=== PATIENT | male | born 1965 | race Caucasian/White ===

== ENCOUNTER → 2018-11-05 | Outpatient (CLI) | payer BC ==
[2015-01-19 16:33] VITALS: BP 114/79
[~2018-11-05] MED LIST: MELA1TAB10 PO; MELO15TA23 PO; TAMS0.4C2 PO; VALE450C2 PO
--- NOTE | 2018-11-05 12:54 | KCIC ---
EXAM: Left shoulder, 3 views. HISTORY: Pain. COMPARISON: None. FINDINGS: 3 views of the left shoulder obtained. There is no fracture, dislocation or subluxation. There is minimal acromioclavicular spurring. IMPRESSION: No acute osseous finding. Electronically signed by: Eneida Cazares MD (11/05/2018 12:51 PM) [id number]
== END | disposition home or self-care (01) ==
LOC: KCIC 11:48
PROVIDERS: ATTEND Family Medicine
DX: M75.82 Other shoulder lesions, left shoulder (principal)
CPT/HCPCS: 73030

== ENCOUNTER 2019-04-25 14:14 | Inpatient (IN) | payer BC ==
[~2019-04-25] VITALS: Ht 177.8 cm; Wt 84.9 kg
[2019-04-25] MEDS ORDERED: IV NORMAL SALINE 1000ML BAG 1,000 ML IV SCH (14:49)
[2019-04-25 14:58] LABS: BASO % 0 % (0-3); EOS % 1 % (0-3); HEMATOCRIT 44.7 % (39.0-53.0); HEMOGLOBIN 15.2 g/dL (13.0-17.5); LYMPH % 15 % (24-48); MEAN CORPUSCULAR HEMOGLOBIN 33 pg (25-35); MEAN CORPUSCULAR HGB CONC 34 g/dL (31-37); MEAN CORPUSCULAR VOLUME 97 fL (79-100); MONO # 0.6 x10^3/uL (0.0-1.1); MONO % 9 % (0-9); NEUT # 4.9 x10^3/uL (1.8-7.7); NEUT % 75 % (31-73); PLATELET COUNT 246 x10^3/uL (140-400); RED CELL DISTRIBUTION WIDTH 12.9 % (11.5-14.5); WHITE BLOOD COUNT 6.5 x10^3/uL (4.0-11.0)
--- NOTE | 2019-04-25 14:59 | PHYS DOC ---
Past Medical History Past Medical History: Other Additional Past Medical Histor: ENLARGED PROSTATE Past Surgical History: Other Additional Past Surgical Histo: HERNIA Alcohol Use: None Drug Use: None Adult General Chief Complaint Chief Complaint: ABDOMINAL PAIN HPI HPI Patient is a 53 year old male who presents with complaining of epigastric pain. Patient complaining of gradual onset of epigastric pain around 1200 as a constant pain to circulation and states the pain gradually became sharp and worse and was 9/10 at arrival to ER. Patient denies nausea and vomiting, fever and chills, chest pain, shortness of breath, radiation of the pain. Patient states he had mild abdominal pain yesterday with 2 episodes of diarrhea after eating cookie. Patient doesn't have medical problem and denies using illegal drugs or alcohol. Patient complaining of left shoulder chronic pain. Patient also states for the last several days he did not feel good and took multiple ibuprofen. Patient was diaphoretic at arrival to ER. Review of Systems Review of Systems Constitutional: Denies fever or chills [] Eyes: Denies change in visual acuity, redness, or eye pain [] HENT: Denies nasal congestion or sore throat [] Respiratory: Denies cough or shortness of breath [] Cardiovascular: No additional information not addressed in HPI [] GI: Reports abdominal pain, diarrhea, denies nausea, vomiting, bloody stools . : Denies dysuria or hematuria [] Musculoskeletal: Denies back pain or joint pain [] Integument: Denies rash or skin lesions [] Neurologic: Denies headache, focal weakness or sensory changes [] Endocrine: Denies polyuria or polydipsia [] All other systems were reviewed and found to be within normal limits, except as documented in this note. Current Medications Current Medications Current Medications Medications (Trade) Dose Ordered Sig/[facility] Start Time Stop Time Status Last Admin Dose Admin Fentanyl Citrate (Fentanyl 2ml Vial) 50 mcg 1X ONCE 04/25/19 17:30 04/25/19 17:31 04/25/19 17:19 50 MCG Info (CONTRAST GIVEN -- Rx MONITORING) 1 each PRN DAILY PRN 04/25/19 15:45 04/27/19 15:44 Iohexol (Omnipaque 300 Mg/ml) 75 ml 1X ONCE 04/25/19 15:45 04/25/19 15:46 DC 04/25/19 16:09 75 ML Ondansetron HCl (Zofran) 4 mg 1X ONCE 04/25/19 15:00 04/25/19 15:01 DC 04/25/19 15:27 4 MG Pantoprazole Sodium (PROTONIX VIAL for IV PUSH) 80 mg 1X ONCE 04/25/19 17:00 04/25/19 17:01 DC 04/25/19 17:19 80 MG Piperacillin Sod/ Tazobactam Sod 3.375 gm/Sodium Chloride 50 ml @ 100 mls/hr 1X ONCE 04/25/19 17:00 04/25/19 17:29 04/25/19 17:19 100 MLS/HR Sodium Chloride 1,000 ml @ 150 mls/hr Q6H40M 04/25/19 18:00 04/26/19 17:59 Allergies Allergies Allergies Coded Allergies Type Severity Reaction Last Updated Verified No Known Drug Allergies 01/19/15 No Physical Exam Physical Exam Constitutional: Well developed, well nourished, mild distress, non-toxic appearance. [] HENT: Normocephalic, atraumatic. Eyes: PERRLA, EOMI, conjunctiva normal, no discharge. [] Neck: Normal range of motion, no tenderness, supple, no stridor. [] Cardiovascular:Heart rate regular rhythm, no murmur [] Lungs & Thorax: Bilateral breath sounds clear to auscultation [] Abdomen: Bowel sounds normal, soft, epigastric tenderness tenderness, no masses, no pulsatile masses. [] Skin: Warm, no erythema, no rash, diaphoretic. [] Back: No tenderness, no CVA tenderness. [] Extremities: No tenderness, no cyanosis, no clubbing, ROM intact, no edema. [] Neurologic: Alert and oriented X 3, no focal deficits noted. [] Psychologic: Affect normal, judgement normal, mood normal. [] Current Patient Data Vital Signs Vital Signs Date Time Temp Pulse Resp B/P (MAP) Pulse Ox O2 Delivery O2 Flow Rate FiO2 04/25/19 17:19 17 95 Room Air 04/25/19 16:45 78 155/88 (110) 04/25/19 14:17 97.7 97.7 Lab Values Laboratory Tests Test 04/25/19 14:40 04/25/19 16:35 White Blood Count 6.5 x10^3/uL (4.0-11.0) Red Blood Count 4.60 x10^6/uL (4.30-5.70) Hemoglobin 15.2 g/dL (13.0-17.5) Hematocrit 44.7 % (39.0-53.0) Mean Corpuscular Volume 97 fL (79-100) Mean Corpuscular Hemoglobin 33 pg (25-35) Mean Corpuscular Hemoglobin Concent 34 g/dL (31-37) Red Cell Distribution Width 12.9 % (11.5-14.5) Platelet Count 246 x10^3/uL (140-400) Neutrophils (%) (Auto) 75 % (31-73) H Lymphocytes (%) (Auto) 15 % (24-48) L Monocytes (%) (Auto) 9 % (0-9) Eosinophils (%) (Auto) 1 % (0-3) Basophils (%) (Auto) 0 % (0-3) Neutrophils # (Auto) 4.9 x10^3/uL (1.8-7.7) Lymphocytes # (Auto) 1.0 x10^3/uL (1.0-4.8) Monocytes # (Auto) 0.6 x10^3/uL (0.0-1.1) Eosinophils # (Auto) 0.0 x10^3/uL (0.0-0.7) Basophils # (Auto) 0.0 x10^3/uL (0.0-0.2) Prothrombin Time 13.3 SEC (11.7-14.0) Prothrombin Time INR 1.0 (0.8-1.1) Sodium Level 137 mmol/L (136-145) Potassium Level 3.7 mmol/L (3.5-5.1) Chloride Level 102 mmol/L (98-107) Carbon Dioxide Level 27 mmol/L (21-32) Anion Gap 8 (6-14) Blood Urea Nitrogen 19 mg/dL (8-26) Creatinine 1.0 mg/dL (0.7-1.3) Estimated GFR (Cockcroft-Gault) 77.6 BUN/Creatinine Ratio 19 (6-20) Glucose Level 104 mg/dL (70-99) H Calcium Level 9.1 mg/dL (8.5-10.1) Total Bilirubin 0.6 mg/dL (0.2-1.0) Aspartate Amino Transferase (AST) 14 U/L (15-37) L Alanine Aminotransferase (ALT) 23 U/L (16-63) Alkaline Phosphatase 70 U/L (46-116) Creatine Kinase 146 U/L (39-308) Troponin I Quantitative < 0.017 ng/mL (0.000-0.055) Total Protein 7.4 g/dL (6.4-8.2) Albumin 3.8 g/dL (3.4-5.0) Albumin/Globulin Ratio 1.1 (1.0-1.7) Lipase 79 U/L (73-393) Urine Collection Type Unknown Urine Color Yellow Urine Clarity Clear Urine pH 5.0 Urine Specific Rule >=1.030 Urine Protein Negative mg/dL (NEG-TRACE) Urine Glucose (UA) Negative mg/dL (NEG) Urine Ketones (Stick) 15 mg/dL (NEG) Urine Blood Trace (NEG) Urine Nitrite Negative (NEG) Urine Bilirubin Negative (NEG) Urine Urobilinogen Dipstick 0.2 mg/dL (0.2 mg/dL) Urine Leukocyte Esterase Negative (NEG) Urine RBC Rare /HPF (0-2) Urine WBC 0 /HPF (0-4) Urine Squamous Epithelial Cells Occ /LPF Urine Bacteria 0 /HPF (0-FEW) Urine Mucus Mod /LPF Laboratory Tests 04/25/19 14:40 Laboratory Tests 04/25/19 14:40 EKG EKG EKG interpreted by me. EKG at 1427 showed normal sinus rhythm at rate of 63, incomplete right bundle branch block, no acute ST and T-wave abnormalities. Radiology/Procedures Radiology/Procedures [][facility] [address] [place] [address] IMAGING REPORT Signed PATIENT: NAVDEEP JORDAN ACCOUNT: [id number] : 1965 LOCATION: ER AGE: 53 SEX: M EXAM STATUS: REG ER ORD. PHYSICIAN: DINESH HOYT MD REASON: epigastric pain PROCEDURE: CT ABD PELV W/ IV CONTRST ONLY PQRS Compliance Statement: One or more of the following individualized dose reduction techniques were utilized for this examination: 1. Automated exposure control 2. Adjustment of the mA and/or kV according to patient size 3. Use of iterative reconstruction technique CT abdomen/pelvis with contrast 04/25/2019 2:49 PM INDICATION: Epigastric pain COMPARISON: None available TECHNIQUE: Multiple axial CT images of the abdomen and pelvis were obtained after the intravenous administration of 75 mL Omnipaque 300. Coronal and sagittal reformats are provided. FINDINGS: Lung bases are clear. Heart size is borderline enlarged. Patulous esophagus with small hiatal hernia. Liver, spleen, bilateral adrenal glands, pancreas and gallbladder are normal in appearance. Abdominal aorta is normal in course and caliber. Small to moderate volume pneumoperitoneum. Small volume free fluid is identified in the dependent portion of the pelvis. Mild inflammatory changes are identified involving the proximal duodenum. Consideration may be given for perforated duodenal ulcer. Stomach wall appears normal. Small and large bowel are normal in caliber. No evidence for bowel obstruction or inflammation. Mild diverticulosis. The kidneys enhance symmetrically. There is no suspicious renal mass. There is no hydronephrosis. There are no suspected calculi within the kidneys, ureters or urinary bladder. There may be a 2 mm nonobstructing calculus in inferior pole the left kidney. Simple cyst is identified in the posterior interpolar left kidney measuring 12 mm. No suspicious renal mass. No hydronephrosis. Urinary bladder is within normal limits given degree of distention. Prostate and seminal vesicles appear normal. No suspicious osseous normality is identified. IMPRESSION: 1. Small to moderate volume pneumoperitoneum. Consideration may be given for perforated duodenal ulcer given minimal wall thickening in the region of the proximal duodenum. 2. No bowel obstruction. Mild diverticulosis without adjacent inflammation. 3. 2 mm nonobstructing calculus in inferior pole left kidney. No hydronephrosis. FOR INTERNAL CODING PURPOSES Critical result: Findings discussed with DINESH HOYT at 04/25/2019 4:48 PM. RESULT CODE: (C) Electronically signed by: Radha Maciel MD (04/25/2019 4:48 PM) [id number] DICTATED and SIGNED BY: RADHA MACIEL MD DATE: 04/25/19 2671 Course & Med Decision Making Course & Med Decision Making Pertinent Labs and Imaging studies reviewed. (See chart for details) [] Dragon Disclaimer Dragon Disclaimer This electronic medical record was generated, in whole or in part, using a voice recognition dictation system. Departure Departure Impression: Primary Impression: Perforated intestine Additional Impression: Pneumoperitoneum Disposition: ADMITTED INPATIENT (at 1659) Admitting Physician: NADEGE (Dr. Pizarro accepted admission at 1659) Condition: GUARDED Referrals: SUKHJINDER TERRELL MD (PCP) Critical Care Time Critical care time was 65 minutes exclusive of procedures. Problem Qualifiers DINESH HOYT MD Apr 25, 2019 14:59
--- NOTE | 2019-04-25 14:59 | EKG ---
[facility] [address] [place] [address] Test Date: 2019-04-25 Test Time: 14:27:39 Pat Name: NAVDEEP JORDAN Department: Room: Gender: M Surgical Scrub Technologist: : 1965 Requested By: DINESH HOYT Order Number: [id number] Reading MD: Sinan Nair MD Measurements Intervals [place] Rate: 63 P: 41 [place]: 140 QRS: 24 QRSD: 106 T: 40 QT: 406 QTc: 419 Interpretive Statements SINUS RHYTHM NON-SPECIFIC ST/T CHANGES Electronically Signed On 05-01-2019 17:28:11 CDT by Sinan Nair MD
[2019-04-25] MEDS ORDERED: fentaNYL PF VIAL 100 MCG/2 ML VIAL IV ONE ×2 (15:00→17:30)
[2019-04-25] MEDS ORDERED: ONDANSETRON PF 4 MG/2 ML VIAL. IV ONE (15:00)
[2019-04-25 15:10] LABS: PROTHROMBIN TIME PATIENT 13.3 SEC (11.7-14.0)
[2019-04-25 15:11] LABS: CALCIUM 9.1 mg/dL (8.5-10.1); GFR 77.6; POTASSIUM 3.7 mmol/L (3.5-5.1)
[2019-04-25 15:17] LABS: ALBUMIN 3.8 g/dL (3.4-5.0); ALBUMIN/GLOBULIN RATIO 1.1 (1.0-1.7); TOTAL BILIRUBIN 0.6 mg/dL (0.2-1.0); TOTAL PROTEIN 7.4 g/dL (6.4-8.2)
[2019-04-25] MEDS ORDERED: IOHEXOL 300 MG/ML 100ML VIAL. IV ONE (15:45)
[2019-04-25] MEDS ORDERED: CONTRAST GIVEN. MC PRN (15:45)
[2019-04-25 16:46] LABS: BILIRUBIN,URINE NEGATIVE (NEG); CLARITY,URINE CLEAR; COLOR,URINE YELLOW; NITRITE,URINE NEGATIVE (NEG); PROTEIN,URINE NEGATIVE (NEG-TRACE); UROBILINOGEN,URINE 0.2 mg/dL (0.2 mg/dL)
--- NOTE | 2019-04-25 16:51 | RAD ---
PQRS Compliance Statement: One or more of the following individualized dose reduction techniques were utilized for this examination: 1. Automated exposure control 2. Adjustment of the mA and/or kV according to patient size 3. Use of iterative reconstruction technique CT abdomen/pelvis with contrast 04/25/2019 2:49 PM INDICATION: Epigastric pain COMPARISON: None available TECHNIQUE: Multiple axial CT images of the abdomen and pelvis were obtained after the intravenous administration of 75 mL Omnipaque 300. Coronal and sagittal reformats are provided. FINDINGS: Lung bases are clear. Heart size is borderline enlarged. Patulous esophagus with small hiatal hernia. Liver, spleen, bilateral adrenal glands, pancreas and gallbladder are normal in appearance. Abdominal aorta is normal in course and caliber. Small to moderate volume pneumoperitoneum. Small volume free fluid is identified in the dependent portion of the pelvis. Mild inflammatory changes are identified involving the proximal duodenum. Consideration may be given for perforated duodenal ulcer. Stomach wall appears normal. Small and large bowel are normal in caliber. No evidence for bowel obstruction or inflammation. Mild diverticulosis. The kidneys enhance symmetrically. There is no suspicious renal mass. There is no hydronephrosis. There are no suspected calculi within the kidneys, ureters or urinary bladder. There may be a 2 mm nonobstructing calculus in inferior pole the left kidney. Simple cyst is identified in the posterior interpolar left kidney measuring 12 mm. No suspicious renal mass. No hydronephrosis. Urinary bladder is within normal limits given degree of distention. Prostate and seminal vesicles appear normal. No suspicious osseous normality is identified. IMPRESSION: 1. Small to moderate volume pneumoperitoneum. Consideration may be given for perforated duodenal ulcer given minimal wall thickening in the region of the proximal duodenum. 2. No bowel obstruction. Mild diverticulosis without adjacent inflammation. 3. 2 mm nonobstructing calculus in inferior pole left kidney. No hydronephrosis. FOR INTERNAL CODING PURPOSES Critical result: Findings discussed with DINESH HOYT at 04/25/2019 4:48 PM. RESULT CODE: (C) Electronically signed by: Ivonne Robin MD (04/25/2019 4:48 PM) [id number]
[2019-04-25] MEDS ORDERED: PANTOPRAZOLE IV PUSH 40 MG VIAL. IVP ONE (17:00)
[2019-04-25] MEDS ORDERED: PIPERACILLIN/TAZOBACTAM 3.375 GM in IV NORMAL SALINE 50ML 50 ML IV ONE (17:00)
[2019-04-25] MEDS ORDERED: IV NORMAL SALINE 1000ML BAG 1,000 ML IV ONE (17:00)
[2019-04-25 17:02] LABS: BACTERIA,URINE 0 /HPF (0-FEW); RBC,URINE RARE /HPF (0-2); SQUAMOUS EPITHELIAL CELL,UR OCC /LPF; WBC,URINE 0 /HPF (0-4)
--- NOTE | 2019-04-25 17:27 | PDOC1 ---
History and Physical Date of Admission Date of Admission DATE: 04/25/19 TIME: 17:23 Identification/Chief Complaint Chief Complaint acute abd pain Source Source: Caregiver, Chart review, Patient History of Present Illness History of Present Illness very pelasant, 53 white male, no past medical, non smoker, only occasional drinker, has been taking NSAIDs 4-5x lately for pain, (claims with food).acute onset epig pain today, no fever, no bowel changes. Has small to moderate peritoneum on CT, could be from perf DU, NO prior hx PUD or similar episodes prior, agreeable to sx if needed, VS ok, non toxic appearing, pain is epigastri c, no guarding Past Medical History Cardiovascular: No pertinent hx Pulmonary: No pertinent hx GI: No pertinent hx Heme/Onc: No pertinent hx Hepatobiliary: No pertinent hx Psych: No pertinent hx Rheumatologic: No pertinent hx Infectious disease: No pertinent hx ENT: No pertinent hx Renal/: No pertinent hx Endocrine: No pertinent hx Dermatology: No pertinent hx Past Surgical History Past Surgical History: Hernia Repair Family History Family History: No Significant Social History Smoke: No ALCOHOL: occassional Drugs: None Current Problem List Problem List Problems Medical Problems: (1) Perforated intestine Status: Acute (2) Pneumoperitoneum Status: Acute Current Medications Current Medications Current Medications Sodium Chloride 1,000 ml @ 1,000 mls/hr Q1H IV Last administered on 04/25/19at 15:27; Start 04/25/19 at 14:49; Stop 04/25/19 at 15:48; Status DC Fentanyl Citrate (Fentanyl 2ml Vial) 50 mcg 1X ONCE IV Last administered on 04/25/19at 15:27; Start 04/25/19 at 15:00; Stop 04/25/19 at 15:01; Status DC Ondansetron HCl (Zofran) 4 mg 1X ONCE IV Last administered on 04/25/19at 15:27; Start 04/25/19 at 15:00; Stop 04/25/19 at 15:01; Status DC Iohexol (Omnipaque 300 Mg/ml) 75 ml 1X ONCE IV Last administered on 04/25/19at 16:09; Start 04/25/19 at 15:45; Stop 04/25/19 at 15:46; Status DC Info (CONTRAST GIVEN -- Rx MONITORING) 1 each PRN DAILY PRN MC SEE COMMENTS; Start 04/25/19 at 15:45; Stop 04/27/19 at 15:44 Pantoprazole Sodium (PROTONIX VIAL for IV PUSH) 80 mg 1X ONCE IVP Last administered on 04/25/19at 17:19; Start 04/25/19 at 17:00; Stop 04/25/19 at 17:01; Status DC Sodium Chloride 1,000 ml @ 1,000 mls/hr 1X ONCE IV Last administered on 04/25/19at 17:19; Start 04/25/19 at 17:00; Stop 04/25/19 at 17:59 Piperacillin Sod/ Tazobactam Sod 3.375 gm/Sodium Chloride 50 ml @ 100 mls/hr 1X ONCE IV Last administered on 04/25/19at 17:19; Start 04/25/19 at 17:00; Stop 04/25/19 at 17:29 Fentanyl Citrate (Fentanyl 2ml Vial) 50 mcg 1X ONCE IV Last administered on 04/25/19at 17:19; Start 04/25/19 at 17:30; Stop 04/25/19 at 17:31 Sodium Chloride 1,000 ml @ 150 mls/hr Q6H40M IV ; Start 04/25/19 at 18:00; Stop 04/26/19 at 17:59 Active Scripts Active Reported Melatonin 1 Mg Tablet (Melatonin/Pyridoxine Hcl (B6)) 1 Each Tablet 1 Each PO HS Valerian (Valerian Root) 450 Mg Capsule 450 Mg PO DAILY Tamsulosin Hcl 0.4 Mg Cap.er.24h 0.4 Mg PO DAILY Meloxicam 15 Mg Tablet 15 Mg PO DAILY Allergies Allergies: Coded Allergies: No Known Drug Allergies (Unverified , 01/19/15) ROS Review of System as per HPI, rest 14 pt neg Physical Exam General: Alert, Oriented X3, Cooperative, No acute distress HEENT: Atraumatic, PERRLA Lungs: Clear to auscultation Heart: S1S2, RRR, no thrills, no rubs Cardiovascular: S1, S2 Breasts: Normal, Rt breast nml w/o mass, Lt breast nml w/o mass, Nipples normal Abdomen: Soft, Other (hypoactive bS< tenderness epig area, no giaurding) Male Genitals Exam: normal genitalia, normal prostate Rectal Exam: not examined PELVIC: Nml ext genitalia Extremities: No clubbing, No cyanosis, No edema, Normal pulses, No tenderness/swelling Skin: No rashes, No breakdown, No significant lesion Neuro: Normal gait, Normal speech, Strength at 5/5 X4 ext, Normal tone, Sensation intact, Cranial nerves 3-12 NL, Reflexes 2+ Vitals Vitals Vital Signs Date Time Temp Pulse Resp B/P (MAP) Pulse Ox O2 Delivery O2 Flow Rate FiO2 04/25/19 17:19 17 95 Room Air 04/25/19 16:45 78 155/88 (110) 04/25/19 14:17 97.7 97.7 Labs Labs Laboratory Tests Test 04/25/19 14:40 04/25/19 16:35 White Blood Count 6.5 x10^3/uL (4.0-11.0) Red Blood Count 4.60 x10^6/uL (4.30-5.70) Hemoglobin 15.2 g/dL (13.0-17.5) Hematocrit 44.7 % (39.0-53.0) Mean Corpuscular Volume 97 fL (79-100) Mean Corpuscular Hemoglobin 33 pg (25-35) Mean Corpuscular Hemoglobin Concent 34 g/dL (31-37) Red Cell Distribution Width 12.9 % (11.5-14.5) Platelet Count 246 x10^3/uL (140-400) Neutrophils (%) (Auto) 75 % (31-73) Lymphocytes (%) (Auto) 15 % (24-48) Monocytes (%) (Auto) 9 % (0-9) Eosinophils (%) (Auto) 1 % (0-3) Basophils (%) (Auto) 0 % (0-3) Neutrophils # (Auto) 4.9 x10^3/uL (1.8-7.7) Lymphocytes # (Auto) 1.0 x10^3/uL (1.0-4.8) Monocytes # (Auto) 0.6 x10^3/uL (0.0-1.1) Eosinophils # (Auto) 0.0 x10^3/uL (0.0-0.7) Basophils # (Auto) 0.0 x10^3/uL (0.0-0.2) Prothrombin Time 13.3 SEC (11.7-14.0) Prothromb Time International Ratio 1.0 (0.8-1.1) Sodium Level 137 mmol/L (136-145) Potassium Level 3.7 mmol/L (3.5-5.1) Chloride Level 102 mmol/L (98-107) Carbon Dioxide Level 27 mmol/L (21-32) Anion Gap 8 (6-14) Blood Urea Nitrogen 19 mg/dL (8-26) Creatinine 1.0 mg/dL (0.7-1.3) Estimated GFR (Cockcroft-Gault) 77.6 BUN/Creatinine Ratio 19 (6-20) Glucose Level 104 mg/dL (70-99) Calcium Level 9.1 mg/dL (8.5-10.1) Total Bilirubin 0.6 mg/dL (0.2-1.0) Aspartate Amino Transf (AST/SGOT) 14 U/L (15-37) Alanine Aminotransferase (ALT/SGPT) 23 U/L (16-63) Alkaline Phosphatase 70 U/L (46-116) Creatine Kinase 146 U/L (39-308) Troponin I Quantitative < 0.017 ng/mL (0.000-0.055) Total Protein 7.4 g/dL (6.4-8.2) Albumin 3.8 g/dL (3.4-5.0) Albumin/Globulin Ratio 1.1 (1.0-1.7) Lipase 79 U/L (73-393) Urine Collection Type Unknown Urine Color Yellow Urine Clarity Clear Urine pH 5.0 Urine Specific [place] >=1.030 Urine Protein Negative mg/dL (NEG-TRACE) Urine Glucose (UA) Negative mg/dL (NEG) Urine Ketones (Stick) 15 mg/dL (NEG) Urine Blood Trace (NEG) Urine Nitrite Negative (NEG) Urine Bilirubin Negative (NEG) Urine Urobilinogen Dipstick 0.2 mg/dL (0.2 mg/dL) Urine Leukocyte Esterase Negative (NEG) Urine RBC Rare /HPF (0-2) Urine WBC 0 /HPF (0-4) Urine Squamous Epithelial Cells Occ /LPF Urine Bacteria 0 /HPF (0-FEW) Urine Mucus Mod /LPF Laboratory Tests Test 04/25/19 14:40 04/25/19 16:35 White Blood Count 6.5 x10^3/uL (4.0-11.0) Red Blood Count 4.60 x10^6/uL (4.30-5.70) Hemoglobin 15.2 g/dL (13.0-17.5) Hematocrit 44.7 % (39.0-53.0) Mean Corpuscular Volume 97 fL (79-100) Mean Corpuscular Hemoglobin 33 pg (25-35) Mean Corpuscular Hemoglobin Concent 34 g/dL (31-37) Red Cell Distribution Width 12.9 % (11.5-14.5) Platelet Count 246 x10^3/uL (140-400) Neutrophils (%) (Auto) 75 % (31-73) Lymphocytes (%) (Auto) 15 % (24-48) Monocytes (%) (Auto) 9 % (0-9) Eosinophils (%) (Auto) 1 % (0-3) Basophils (%) (Auto) 0 % (0-3) Neutrophils # (Auto) 4.9 x10^3/uL (1.8-7.7) Lymphocytes # (Auto) 1.0 x10^3/uL (1.0-4.8) Monocytes # (Auto) 0.6 x10^3/uL (0.0-1.1) Eosinophils # (Auto) 0.0 x10^3/uL (0.0-0.7) Basophils # (Auto) 0.0 x10^3/uL (0.0-0.2) Prothrombin Time 13.3 SEC (11.7-14.0) Prothromb Time International Ratio 1.0 (0.8-1.1) Sodium Level 137 mmol/L (136-145) Potassium Level 3.7 mmol/L (3.5-5.1) Chloride Level 102 mmol/L (98-107) Carbon Dioxide Level 27 mmol/L (21-32) Anion Gap 8 (6-14) Blood Urea Nitrogen 19 mg/dL (8-26) Creatinine 1.0 mg/dL (0.7-1.3) Estimated GFR (Cockcroft-Gault) 77.6 BUN/Creatinine Ratio 19 (6-20) Glucose Level 104 mg/dL (70-99) Calcium Level 9.1 mg/dL (8.5-10.1) Total Bilirubin 0.6 mg/dL (0.2-1.0) Aspartate Amino Transf (AST/SGOT) 14 U/L (15-37) Alanine Aminotransferase (ALT/SGPT) 23 U/L (16-63) Alkaline Phosphatase 70 U/L (46-116) Creatine Kinase 146 U/L (39-308) Troponin I Quantitative < 0.017 ng/mL (0.000-0.055) Total Protein 7.4 g/dL (6.4-8.2) Albumin 3.8 g/dL (3.4-5.0) Albumin/Globulin Ratio 1.1 (1.0-1.7) Lipase 79 U/L (73-393) Urine Collection Type Unknown Urine Color Yellow Urine Clarity Clear Urine pH 5.0 Urine Specific [place] >=1.030 Urine Protein Negative mg/dL (NEG-TRACE) Urine Glucose (UA) Negative mg/dL (NEG) Urine Ketones (Stick) 15 mg/dL (NEG) Urine Blood Trace (NEG) Urine Nitrite Negative (NEG) Urine Bilirubin Negative (NEG) Urine Urobilinogen Dipstick 0.2 mg/dL (0.2 mg/dL) Urine Leukocyte Esterase Negative (NEG) Urine RBC Rare /HPF (0-2) Urine WBC 0 /HPF (0-4) Urine Squamous Epithelial Cells Occ /LPF Urine Bacteria 0 /HPF (0-FEW) Urine Mucus Mod /LPF VTE Prophylaxis Ordered VTE Prophylaxis Devices: Yes VTE Pharmacological Prophylaxi: Yes Assessment/Plan Assessment/Plan small to mod sized pneumoperitoneum could be from perf DU NSAID use lately occ etoh drinker, non smoker PLAN: 2 mN< NPO, IVF IV PPI while NPO Stat Sx consult PAin control Seen at ER FULL CODE ARELY NEWELL MD Apr 25, 2019 17:27
[2019-04-25] MEDS ORDERED: LABETALOL 20 MG/4 ML DISP.SYRIN. IVP PRN (17:30)
[2019-04-25] MEDS ORDERED: ONDANSETRON PF 4 MG/2 ML VIAL. IV PRN ×2 (17:30→23:45)
[2019-04-25] MEDS ORDERED: ACETAMINOPHEN/CODEINE 300/30MG TABLET. PO PRN (17:30)
[2019-04-25] MEDS ORDERED: diphenhydrAMINE 50 MG/ML VIAL IVP PRN (17:30)
[2019-04-25] MEDS ORDERED: fentaNYL PF VIAL 100 MCG/2 ML VIAL IV PRN ×2 (17:30→23:45)
[2019-04-25] MEDS: IV NORMAL SALINE 1000ML BAG 1,000 ML IV SCH (19:38)
[2019-04-25 21:13] VITALS: BP 150/85
[2019-04-25 23:25] VITALS: BP 143/82
[2019-04-25] MEDS ORDERED: LIDOCAINE 2% PF 5 ML VIAL. ONE (23:25)
[2019-04-25] MEDS ORDERED: PROPOFOL 20 ML IV ONE (23:25)
[2019-04-25] MEDS ORDERED: ROCURONIUM 50 MG/5 ML VIAL. ONE (23:26)
[2019-04-25] MEDS ORDERED: SUCCINYLCHOLINE 200 MG/10 ML VIAL. ONE (23:26)
[2019-04-25] MEDS ORDERED: fentaNYL PF VIAL 100 MCG/2 ML VIAL ONE (23:26)
[2019-04-25] MEDS ORDERED: IV RINGERS,LACTATED 1000ML 1,000 ML IV SCH (23:35)
--- NOTE | 2019-04-25 23:35 | PDOC2 ---
CONSULT Date of Consult Date of Consult DATE: 04/25/19 TIME: 23:29 Reason for Consult Reason for Consult: Pneumoperitoneum, favor perforated duodenal ulcer Referring Physician Referring Physician: Dr. Pizarro Identification/Chief Complaint Chief Complaint epigastric abd pain Source Source: Chart review, Patient History of Present Illness Reason for Visit: 53 yo M with hx of epigastric pain and heartburn, short lived and treated with antacids. Occasionally takes NSAIDs for headache. Reports abdominal pain for two days. Worse today prompting ER visit. Feels better since admission, but still with epigastric pain. Past Medical History Cardiovascular: No pertinent hx Pulmonary: No pertinent hx GI: No pertinent hx Heme/Onc: No pertinent hx Hepatobiliary: No pertinent hx Psych: No pertinent hx Rheumatologic: No pertinent hx Infectious disease: No pertinent hx ENT: No pertinent hx Renal/: No pertinent hx Endocrine: No pertinent hx Dermatology: No pertinent hx Past Surgical History Past Surgical History: Hernia Repair Family History Family History: No Significant Social History No ALCOHOL: occassional Drugs: None Current Problem List Problem List Problems Medical Problems: (1) Perforated intestine Status: Acute (2) Pneumoperitoneum Status: Acute Current Medications Current Medications Current Medications Sodium Chloride 1,000 ml @ 1,000 mls/hr Q1H IV Last administered on 04/25/19at 15:27; Start 04/25/19 at 14:49; Stop 04/25/19 at 15:48; Status DC Fentanyl Citrate (Fentanyl 2ml Vial) 50 mcg 1X ONCE IV Last administered on 04/25/19at 15:27; Start 04/25/19 at 15:00; Stop 04/25/19 at 15:01; Status DC Ondansetron HCl (Zofran) 4 mg 1X ONCE IV Last administered on 04/25/19at 15:27; Start 04/25/19 at 15:00; Stop 04/25/19 at 15:01; Status DC Iohexol (Omnipaque 300 Mg/ml) 75 ml 1X ONCE IV Last administered on 04/25/19at 16:09; Start 04/25/19 at 15:45; Stop 04/25/19 at 15:46; Status DC Info (CONTRAST GIVEN -- Rx MONITORING) 1 each PRN DAILY PRN MC SEE COMMENTS; Start 04/25/19 at 15:45; Stop 04/27/19 at 15:44 Pantoprazole Sodium (PROTONIX VIAL for IV PUSH) 80 mg 1X ONCE IVP Last administered on 04/25/19at 17:19; Start 04/25/19 at 17:00; Stop 04/25/19 at 17:01; Status DC Sodium Chloride 1,000 ml @ 1,000 mls/hr 1X ONCE IV Last administered on 04/25/19at 17:19; Start 04/25/19 at 17:00; Stop 04/25/19 at 17:59; Status DC Piperacillin Sod/ Tazobactam Sod 3.375 gm/Sodium Chloride 50 ml @ 100 mls/hr 1X ONCE IV Last administered on 04/25/19at 17:19; Start 04/25/19 at 17:00; Stop 04/25/19 at 17:29; Status DC Fentanyl Citrate (Fentanyl 2ml Vial) 50 mcg 1X ONCE IV Last administered on 04/25/19at 17:19; Start 04/25/19 at 17:30; Stop 04/25/19 at 17:31; Status DC Sodium Chloride 1,000 ml @ 150 mls/hr Q6H40M IV Last administered on 04/25/19at 19:38; Start 04/25/19 at 18:00; Stop 04/26/19 at 17:59 Fentanyl Citrate (Fentanyl 2ml Vial) 50 mcg PRN Q2HR PRN IV PAIN Last administered on 04/25/19at 21:24; Start 04/25/19 at 17:30 Acetaminophen/ Codeine Phosphate (Tylenol #3) 1 tab PRN Q6HRS PRN PO MODERATE PAIN; Start 04/25/19 at 17:30 Ondansetron HCl (Zofran) 4 mg PRN Q6HRS PRN IV NAUSEA/VOMITING; Start 04/25/19 at 17:30 Labetalol HCl (Normodyne Iv Push) 10 mg PRN Q2HR PRN IVP HYPERTENSION; Start 04/25/19 at 17:30 Diphenhydramine HCl (Benadryl) 25 mg PRN QHS PRN IVP sleep; Start 04/25/19 at 17:30 Pantoprazole Sodium (PROTONIX VIAL for IV PUSH) 40 mg DAILYAC IVP ; Start 04/26/19 at 07:30 Tamsulosin HCl (Flomax) 0.8 mg DAILY PO ; Start 04/26/19 at 09:00 Propofol 20 ml @ As Directed STK-MED ONCE IV ; Start 04/25/19 at 23:25; Stop 04/25/19 at 23:26; Status DC Lidocaine HCl (Lidocaine Pf 2% Vial) 5 ml STK-MED ONCE .ROUTE ; Start 04/25/19 at 23:25; Stop 04/25/19 at 23:26; Status DC Fentanyl Citrate (Fentanyl 2ml Vial) 100 mcg STK-MED ONCE .ROUTE ; Start 04/25/19 at 23:26; Stop 04/25/19 at 23:26; Status DC Succinylcholine Chloride (Anectine) 200 mg STK-MED ONCE .ROUTE ; Start 04/25/19 at 23:26; Stop 04/25/19 at 23:26; Status DC Rocuronium [place] (Zemuron) 50 mg STK-MED ONCE .ROUTE ; Start 04/25/19 at 23:26; Stop 04/25/19 at 23:26; Status DC Active Scripts Active Reported Tamsulosin Hcl 0.4 Mg Cap.er.24h 0.8 Mg PO DAILY Allergies Allergies: Coded Allergies: No Known Drug Allergies (Unverified , 01/19/15) ROS Gastrointestinal: Yes Abdominal Pain Physical Exam General: Alert, Oriented X3, Cooperative, mild distress HEENT: Atraumatic Lungs: Normal air movement Abdomen: Soft, Other (mild distention, TTP epigastric, no peritoneal signs) Extremities: No clubbing, No cyanosis Skin: No rashes, No breakdown Neuro: Normal speech, Sensation intact Psych/Mental Status: Mental status NL, Mood NL Vitals VITALS Vital Signs Date Time Temp Pulse Resp B/P (MAP) Pulse Ox O2 Delivery O2 Flow Rate FiO2 04/25/19 23:25 98.7 81 16 143/82 (102) 94 Room Air 98.7 Labs Labs Laboratory Tests Test 04/25/19 14:40 04/25/19 16:35 White Blood Count 6.5 x10^3/uL (4.0-11.0) Red Blood Count 4.60 x10^6/uL (4.30-5.70) Hemoglobin 15.2 g/dL (13.0-17.5) Hematocrit 44.7 % (39.0-53.0) Mean Corpuscular Volume 97 fL (79-100) Mean Corpuscular Hemoglobin 33 pg (25-35) Mean Corpuscular Hemoglobin Concent 34 g/dL (31-37) Red Cell Distribution Width 12.9 % (11.5-14.5) Platelet Count 246 x10^3/uL (140-400) Neutrophils (%) (Auto) 75 % (31-73) Lymphocytes (%) (Auto) 15 % (24-48) Monocytes (%) (Auto) 9 % (0-9) Eosinophils (%) (Auto) 1 % (0-3) Basophils (%) (Auto) 0 % (0-3) Neutrophils # (Auto) 4.9 x10^3/uL (1.8-7.7) Lymphocytes # (Auto) 1.0 x10^3/uL (1.0-4.8) Monocytes # (Auto) 0.6 x10^3/uL (0.0-1.1) Eosinophils # (Auto) 0.0 x10^3/uL (0.0-0.7) Basophils # (Auto) 0.0 x10^3/uL (0.0-0.2) Prothrombin Time 13.3 SEC (11.7-14.0) Prothromb Time International Ratio 1.0 (0.8-1.1) Sodium Level 137 mmol/L (136-145) Potassium Level 3.7 mmol/L (3.5-5.1) Chloride Level 102 mmol/L (98-107) Carbon Dioxide Level 27 mmol/L (21-32) Anion Gap 8 (6-14) Blood Urea Nitrogen 19 mg/dL (8-26) Creatinine 1.0 mg/dL (0.7-1.3) Estimated GFR (Cockcroft-Gault) 77.6 BUN/Creatinine Ratio 19 (6-20) Glucose Level 104 mg/dL (70-99) Calcium Level 9.1 mg/dL (8.5-10.1) Total Bilirubin 0.6 mg/dL (0.2-1.0) Aspartate Amino Transf (AST/SGOT) 14 U/L (15-37) Alanine Aminotransferase (ALT/SGPT) 23 U/L (16-63) Alkaline Phosphatase 70 U/L (46-116) Creatine Kinase 146 U/L (39-308) Troponin I Quantitative < 0.017 ng/mL (0.000-0.055) Total Protein 7.4 g/dL (6.4-8.2) Albumin 3.8 g/dL (3.4-5.0) Albumin/Globulin Ratio 1.1 (1.0-1.7) Lipase 79 U/L (73-393) Urine Collection Type Unknown Urine Color Yellow Urine Clarity Clear Urine pH 5.0 Urine Specific [place] >=1.030 Urine Protein Negative mg/dL (NEG-TRACE) Urine Glucose (UA) Negative mg/dL (NEG) Urine Ketones (Stick) 15 mg/dL (NEG) Urine Blood Trace (NEG) Urine Nitrite Negative (NEG) Urine Bilirubin Negative (NEG) Urine Urobilinogen Dipstick 0.2 mg/dL (0.2 mg/dL) Urine Leukocyte Esterase Negative (NEG) Urine RBC Rare /HPF (0-2) Urine WBC 0 /HPF (0-4) Urine Squamous Epithelial Cells Occ /LPF Urine Bacteria 0 /HPF (0-FEW) Urine Mucus Mod /LPF Laboratory Tests Test 04/25/19 14:40 04/25/19 16:35 White Blood Count 6.5 x10^3/uL (4.0-11.0) Red Blood Count 4.60 x10^6/uL (4.30-5.70) Hemoglobin 15.2 g/dL (13.0-17.5) Hematocrit 44.7 % (39.0-53.0) Mean Corpuscular Volume 97 fL (79-100) Mean Corpuscular Hemoglobin 33 pg (25-35) Mean Corpuscular Hemoglobin Concent 34 g/dL (31-37) Red Cell Distribution Width 12.9 % (11.5-14.5) Platelet Count 246 x10^3/uL (140-400) Neutrophils (%) (Auto) 75 % (31-73) Lymphocytes (%) (Auto) 15 % (24-48) Monocytes (%) (Auto) 9 % (0-9) Eosinophils (%) (Auto) 1 % (0-3) Basophils (%) (Auto) 0 % (0-3) Neutrophils # (Auto) 4.9 x10^3/uL (1.8-7.7) Lymphocytes # (Auto) 1.0 x10^3/uL (1.0-4.8) Monocytes # (Auto) 0.6 x10^3/uL (0.0-1.1) Eosinophils # (Auto) 0.0 x10^3/uL (0.0-0.7) Basophils # (Auto) 0.0 x10^3/uL (0.0-0.2) Prothrombin Time 13.3 SEC (11.7-14.0) Prothromb Time International Ratio 1.0 (0.8-1.1) Sodium Level 137 mmol/L (136-145) Potassium Level 3.7 mmol/L (3.5-5.1) Chloride Level 102 mmol/L (98-107) Carbon Dioxide Level 27 mmol/L (21-32) Anion Gap 8 (6-14) Blood Urea Nitrogen 19 mg/dL (8-26) Creatinine 1.0 mg/dL (0.7-1.3) Estimated GFR (Cockcroft-Gault) 77.6 BUN/Creatinine Ratio 19 (6-20) Glucose Level 104 mg/dL (70-99) Calcium Level 9.1 mg/dL (8.5-10.1) Total Bilirubin 0.6 mg/dL (0.2-1.0) Aspartate Amino Transf (AST/SGOT) 14 U/L (15-37) Alanine Aminotransferase (ALT/SGPT) 23 U/L (16-63) Alkaline Phosphatase 70 U/L (46-116) Creatine Kinase 146 U/L (39-308) Troponin I Quantitative < 0.017 ng/mL (0.000-0.055) Total Protein 7.4 g/dL (6.4-8.2) Albumin 3.8 g/dL (3.4-5.0) Albumin/Globulin Ratio 1.1 (1.0-1.7) Lipase 79 U/L (73-393) Urine Collection Type Unknown Urine Color Yellow Urine Clarity Clear Urine pH 5.0 Urine Specific [place] >=1.030 Urine Protein Negative mg/dL (NEG-TRACE) Urine Glucose (UA) Negative mg/dL (NEG) Urine Ketones (Stick) 15 mg/dL (NEG) Urine Blood Trace (NEG) Urine Nitrite Negative (NEG) Urine Bilirubin Negative (NEG) Urine Urobilinogen Dipstick 0.2 mg/dL (0.2 mg/dL) Urine Leukocyte Esterase Negative (NEG) Urine RBC Rare /HPF (0-2) Urine WBC 0 /HPF (0-4) Urine Squamous Epithelial Cells Occ /LPF Urine Bacteria 0 /HPF (0-FEW) Urine Mucus Mod /LPF Images Images Ct with pneumoperitoneal, c/w perforated duodenal ulcer Assessment/Plan Assessment/Plan Perforated duodenal ulcer TO OR for laparoscopic versus open exploration and repair. R/R/B/A d/w pt. Risks, including, but not limited to: bleeding, infection, damage to surrounding structures, risk of anesthesia, risk of open, risk of . He appears to understand, his questions are answered and he elects to proceed. Thanks for consult! MARCELINA VINCENT MD Apr 25, 2019 23:35
[2019-04-25] MEDS ORDERED: PROCHLORPERAZINE 10 MG/2 ML VIAL. IV PRN (23:45)
[2019-04-25] MEDS ORDERED: MORPHINE SULFATE 2 MG/ML VIAL. IV PRN (23:45)
[2019-04-25] MEDS ORDERED: HYDROmorphone 2 MG/ML VIAL IV PRN (23:45)
[2019-04-25] MEDS ORDERED: BUPIVACAINE MPF 0.5% 30 ML VIAL. ONE (23:50)
[2019-04-26] VITALS (12 sets, daily range): BP systolic 120–148; BP diastolic 53–87
[2019-04-26] MEDS ORDERED: ONDANSETRON PF 4 MG/2 ML VIAL. ONE (00:24)
[2019-04-26] MEDS ORDERED: DESFLURANE 31 TO 60 MINUTES IH ONE (00:24)
[2019-04-26] MEDS ORDERED: DEXAMETHASONE SOD PHOS 4 MG/ML VIAL ONE (00:24)
[2019-04-26] MEDS ORDERED: NEOSTIGMINE METHYLSULFATE 5 MG/5 ML SYRINGE. ONE (00:33)
[2019-04-26] MEDS ORDERED: GLYCOPYRROLATE 1 MG/5 ML VIAL. ONE (00:33)
[2019-04-26] MEDS: IV NORMAL SALINE 1000ML BAG 1,000 ML IV SCH ×3 (00:40→07:20)
[2019-04-26] MEDS ORDERED: ePHEDrine PF IN SALINE 50 MG/10 ML SYRINGE. IV ONE (00:41)
[2019-04-26] MEDS: IV RINGERS,LACTATED 1000ML 1,000 ML IV SCH ×2 (01:28→08:13)
[2019-04-26] MEDS ORDERED: ONDANSETRON PF 4 MG/2 ML VIAL. IV PRN (01:30)
[2019-04-26] MEDS ORDERED: NALOXONE 0.4 MG/ML VIAL. IV PRN (01:30)
[2019-04-26] MEDS ORDERED: 0.9 % SODIUM CHLORIDE 10 ML DISP.SYRIN. IV PRN (01:30)
[2019-04-26] MEDS ORDERED: fentaNYL PF VIAL 100 MCG/2 ML VIAL ONE (01:42)
[2019-04-26] MEDS: fentaNYL PF VIAL 100 MCG/2 ML VIAL IV PRN ×2 (01:44→02:06)
--- NOTE | 2019-04-26 01:48 | PDOC4 ---
OPERATIVE NOTE Date: Date: Apr 26, 2019 Pre-Op Diagnosis: Perforated viscous Post-Op Diagnosis: same, perforated duodenal ulcer (pyloric channel) Procedure Performed: laparoscopic converted to open duodenal ulcer repair with dion patch Surgeon: Viral Vincent Anesthesia Type: GETA plus local Blood Loss: 50 Specimans Obtained: none Findings: small perforated duodenal ulcer, anterior, at pyloric channel Complications: none Operative Note: After obtaining informed consent, patient was taken to OR, induced under GETA and prepped in the usual fashion. 5 mm ports placed umbilical, RUQ and LUQ, under laparoscopic guidance. Abdominal cavity explored. No other pathology noted. Tannish fluid noted in epigastric and around liver. Attempts at identifying ulcer laparoscopically were unsuccessful. Hence, open procedure indicated. Upper midline incision made with cautery. Small bowel was run and was normal. Small (1 mm) ulcer identified at pyloric channel. This was repaired with multiple 3 0 vicryl. Segment of omentum was secured over this with the vicryl. Copious irrigation. No evidence of bleeding or other pathology noted. Fascia repaired with 0 looped PDS. Skin repaired with 3 0 vicryl and 4 0 monocryl. Inferior edge left open for drainage. Dressing placed. Patient tolerated procedure well and was sent to PACU in stable condition. All counts correct. Wound class is 4, dirty. MARCELINA VINCENT MD Apr 26, 2019 01:48
[2019-04-26] MEDS: MORPHINE SULFATE/PF 30 ML IV PRN (03:50)
[2019-04-26] MEDS: TAMSULOSIN 0.4 MG CAP.ER.24H. PO SCH (08:12)
[2019-04-26] MEDS: PANTOPRAZOLE IV PUSH 40 MG VIAL. IVP SCH (08:14)
[2019-04-26] MEDS ORDERED: ENOXAPARIN 40 MG/0.4 ML SYRINGE. SQ SCH (09:00)
--- NOTE | 2019-04-26 10:48 | PDOC ---
PROGRESS NOTES Chief Complaint Chief Complaint acute abd pain perforated duodenal ulcer POD #1 laparoscopic converted to open duodenal ulcer repair with dion patch History of Present Illness History of Present Illness pain with deep breaths, I encouraged deeper sigh breaths occassiionaloy no event using the SHEEP [employer]ER every 20-30 minutes for pain, pain 7/10 Vitals Vitals Vital Signs Date Time Temp Pulse Resp B/P (MAP) Pulse Ox O2 Delivery O2 Flow Rate FiO2 04/26/19 08:00 Nasal Cannula 1.0 04/26/19 07:00 76 19 123/76 (92) 97 04/26/19 07:00 98.2 98.2 Physical Exam General: Alert, Oriented X3, Cooperative, No acute distress, mild distress Heart: Normal S1, Normal S2 Lungs: Other (lmiited vol dull bases, ) Abdomen: Soft, Other (mild distention, TTP epigastric, no peritoneal signs) Extremities: No clubbing, No cyanosis Skin: No rashes, No breakdown Labs LABS Laboratory Tests Test 04/25/19 14:40 04/25/19 16:35 White Blood Count 6.5 x10^3/uL (4.0-11.0) Red Blood Count 4.60 x10^6/uL (4.30-5.70) Hemoglobin 15.2 g/dL (13.0-17.5) Hematocrit 44.7 % (39.0-53.0) Mean Corpuscular Volume 97 fL (79-100) Mean Corpuscular Hemoglobin 33 pg (25-35) Mean Corpuscular Hemoglobin Concent 34 g/dL (31-37) Red Cell Distribution Width 12.9 % (11.5-14.5) Platelet Count 246 x10^3/uL (140-400) Neutrophils (%) (Auto) 75 % (31-73) Lymphocytes (%) (Auto) 15 % (24-48) Monocytes (%) (Auto) 9 % (0-9) Eosinophils (%) (Auto) 1 % (0-3) Basophils (%) (Auto) 0 % (0-3) Neutrophils # (Auto) 4.9 x10^3/uL (1.8-7.7) Lymphocytes # (Auto) 1.0 x10^3/uL (1.0-4.8) Monocytes # (Auto) 0.6 x10^3/uL (0.0-1.1) Eosinophils # (Auto) 0.0 x10^3/uL (0.0-0.7) Basophils # (Auto) 0.0 x10^3/uL (0.0-0.2) Prothrombin Time 13.3 SEC (11.7-14.0) Prothromb Time International Ratio 1.0 (0.8-1.1) Sodium Level 137 mmol/L (136-145) Potassium Level 3.7 mmol/L (3.5-5.1) Chloride Level 102 mmol/L (98-107) Carbon Dioxide Level 27 mmol/L (21-32) Anion Gap 8 (6-14) Blood Urea Nitrogen 19 mg/dL (8-26) Creatinine 1.0 mg/dL (0.7-1.3) Estimated GFR (Cockcroft-Gault) 77.6 BUN/Creatinine Ratio 19 (6-20) Glucose Level 104 mg/dL (70-99) Calcium Level 9.1 mg/dL (8.5-10.1) Total Bilirubin 0.6 mg/dL (0.2-1.0) Aspartate Amino Transf (AST/SGOT) 14 U/L (15-37) Alanine Aminotransferase (ALT/SGPT) 23 U/L (16-63) Alkaline Phosphatase 70 U/L (46-116) Creatine Kinase 146 U/L (39-308) Troponin I Quantitative < 0.017 ng/mL (0.000-0.055) Total Protein 7.4 g/dL (6.4-8.2) Albumin 3.8 g/dL (3.4-5.0) Albumin/Globulin Ratio 1.1 (1.0-1.7) Lipase 79 U/L (73-393) Urine Collection Type Unknown Urine Color Yellow Urine Clarity Clear Urine pH 5.0 Urine Specific [place] >=1.030 Urine Protein Negative mg/dL (NEG-TRACE) Urine Glucose (UA) Negative mg/dL (NEG) Urine Ketones (Stick) 15 mg/dL (NEG) Urine Blood Trace (NEG) Urine Nitrite Negative (NEG) Urine Bilirubin Negative (NEG) Urine Urobilinogen Dipstick 0.2 mg/dL (0.2 mg/dL) Urine Leukocyte Esterase Negative (NEG) Urine RBC Rare /HPF (0-2) Urine WBC 0 /HPF (0-4) Urine Squamous Epithelial Cells Occ /LPF Urine Bacteria 0 /HPF (0-FEW) Urine Mucus Mod /LPF Assessment and Plan Assessmemt and Plan Problems Medical Problems: (1) Perforated intestine Status: Acute (2) Pneumoperitoneum Status: Acute Comment Review of Relevant I have reviewed the following items nirmla (where applicable) has been applied. Labs Laboratory Tests Test 04/25/19 14:40 04/25/19 16:35 White Blood Count 6.5 x10^3/uL (4.0-11.0) Red Blood Count 4.60 x10^6/uL (4.30-5.70) Hemoglobin 15.2 g/dL (13.0-17.5) Hematocrit 44.7 % (39.0-53.0) Mean Corpuscular Volume 97 fL (79-100) Mean Corpuscular Hemoglobin 33 pg (25-35) Mean Corpuscular Hemoglobin Concent 34 g/dL (31-37) Red Cell Distribution Width 12.9 % (11.5-14.5) Platelet Count 246 x10^3/uL (140-400) Neutrophils (%) (Auto) 75 % (31-73) Lymphocytes (%) (Auto) 15 % (24-48) Monocytes (%) (Auto) 9 % (0-9) Eosinophils (%) (Auto) 1 % (0-3) Basophils (%) (Auto) 0 % (0-3) Neutrophils # (Auto) 4.9 x10^3/uL (1.8-7.7) Lymphocytes # (Auto) 1.0 x10^3/uL (1.0-4.8) Monocytes # (Auto) 0.6 x10^3/uL (0.0-1.1) Eosinophils # (Auto) 0.0 x10^3/uL (0.0-0.7) Basophils # (Auto) 0.0 x10^3/uL (0.0-0.2) Prothrombin Time 13.3 SEC (11.7-14.0) Prothromb Time International Ratio 1.0 (0.8-1.1) Sodium Level 137 mmol/L (136-145) Potassium Level 3.7 mmol/L (3.5-5.1) Chloride Level 102 mmol/L (98-107) Carbon Dioxide Level 27 mmol/L (21-32) Anion Gap 8 (6-14) Blood Urea Nitrogen 19 mg/dL (8-26) Creatinine 1.0 mg/dL (0.7-1.3) Estimated GFR (Cockcroft-Gault) 77.6 BUN/Creatinine Ratio 19 (6-20) Glucose Level 104 mg/dL (70-99) Calcium Level 9.1 mg/dL (8.5-10.1) Total Bilirubin 0.6 mg/dL (0.2-1.0) Aspartate Amino Transf (AST/SGOT) 14 U/L (15-37) Alanine Aminotransferase (ALT/SGPT) 23 U/L (16-63) Alkaline Phosphatase 70 U/L (46-116) Creatine Kinase 146 U/L (39-308) Troponin I Quantitative < 0.017 ng/mL (0.000-0.055) Total Protein 7.4 g/dL (6.4-8.2) Albumin 3.8 g/dL (3.4-5.0) Albumin/Globulin Ratio 1.1 (1.0-1.7) Lipase 79 U/L (73-393) Urine Collection Type Unknown Urine Color Yellow Urine Clarity Clear Urine pH 5.0 Urine Specific [place] >=1.030 Urine Protein Negative mg/dL (NEG-TRACE) Urine Glucose (UA) Negative mg/dL (NEG) Urine Ketones (Stick) 15 mg/dL (NEG) Urine Blood Trace (NEG) Urine Nitrite Negative (NEG) Urine Bilirubin Negative (NEG) Urine Urobilinogen Dipstick 0.2 mg/dL (0.2 mg/dL) Urine Leukocyte Esterase Negative (NEG) Urine RBC Rare /HPF (0-2) Urine WBC 0 /HPF (0-4) Urine Squamous Epithelial Cells Occ /LPF Urine Bacteria 0 /HPF (0-FEW) Urine Mucus Mod /LPF Laboratory Tests Test 04/25/19 14:40 04/25/19 16:35 White Blood Count 6.5 x10^3/uL (4.0-11.0) Red Blood Count 4.60 x10^6/uL (4.30-5.70) Hemoglobin 15.2 g/dL (13.0-17.5) Hematocrit 44.7 % (39.0-53.0) Mean Corpuscular Volume 97 fL (79-100) Mean Corpuscular Hemoglobin 33 pg (25-35) Mean Corpuscular Hemoglobin Concent 34 g/dL (31-37) Red Cell Distribution Width 12.9 % (11.5-14.5) Platelet Count 246 x10^3/uL (140-400) Neutrophils (%) (Auto) 75 % (31-73) Lymphocytes (%) (Auto) 15 % (24-48) Monocytes (%) (Auto) 9 % (0-9) Eosinophils (%) (Auto) 1 % (0-3) Basophils (%) (Auto) 0 % (0-3) Neutrophils # (Auto) 4.9 x10^3/uL (1.8-7.7) Lymphocytes # (Auto) 1.0 x10^3/uL (1.0-4.8) Monocytes # (Auto) 0.6 x10^3/uL (0.0-1.1) Eosinophils # (Auto) 0.0 x10^3/uL (0.0-0.7) Basophils # (Auto) 0.0 x10^3/uL (0.0-0.2) Prothrombin Time 13.3 SEC (11.7-14.0) Prothromb Time International Ratio 1.0 (0.8-1.1) Sodium Level 137 mmol/L (136-145) Potassium Level 3.7 mmol/L (3.5-5.1) Chloride Level 102 mmol/L (98-107) Carbon Dioxide Level 27 mmol/L (21-32) Anion Gap 8 (6-14) Blood Urea Nitrogen 19 mg/dL (8-26) Creatinine 1.0 mg/dL (0.7-1.3) Estimated GFR (Cockcroft-Gault) 77.6 BUN/Creatinine Ratio 19 (6-20) Glucose Level 104 mg/dL (70-99) Calcium Level 9.1 mg/dL (8.5-10.1) Total Bilirubin 0.6 mg/dL (0.2-1.0) Aspartate Amino Transf (AST/SGOT) 14 U/L (15-37) Alanine Aminotransferase (ALT/SGPT) 23 U/L (16-63) Alkaline Phosphatase 70 U/L (46-116) Creatine Kinase 146 U/L (39-308) Troponin I Quantitative < 0.017 ng/mL (0.000-0.055) Total Protein 7.4 g/dL (6.4-8.2) Albumin 3.8 g/dL (3.4-5.0) Albumin/Globulin Ratio 1.1 (1.0-1.7) Lipase 79 U/L (73-393) Urine Collection Type Unknown Urine Color Yellow Urine Clarity Clear Urine pH 5.0 Urine Specific [place] >=1.030 Urine Protein Negative mg/dL (NEG-TRACE) Urine Glucose (UA) Negative mg/dL (NEG) Urine Ketones (Stick) 15 mg/dL (NEG) Urine Blood Trace (NEG) Urine Nitrite Negative (NEG) Urine Bilirubin Negative (NEG) Urine Urobilinogen Dipstick 0.2 mg/dL (0.2 mg/dL) Urine Leukocyte Esterase Negative (NEG) Urine RBC Rare /HPF (0-2) Urine WBC 0 /HPF (0-4) Urine Squamous Epithelial Cells Occ /LPF Urine Bacteria 0 /HPF (0-FEW) Urine Mucus Mod /LPF Medications Current Medications Sodium Chloride 1,000 ml @ 1,000 mls/hr Q1H IV Last administered on 04/25/19at 15:27; Start 04/25/19 at 14:49; Stop 04/25/19 at 15:48; Status DC Fentanyl Citrate (Fentanyl 2ml Vial) 50 mcg 1X ONCE IV Last administered on 04/25/19 15:27; Start 04/25/19 at 15:00; Stop 04/25/19 at 15:01; Status DC Ondansetron HCl (Zofran) 4 mg 1X ONCE IV Last administered on 04/25/19at 15:27; Start 04/25/19 at 15:00; Stop 04/25/19 at 15:01; Status DC Iohexol (Omnipaque 300 Mg/ml) 75 ml 1X ONCE IV Last administered on 04/25/19at 16:09; Start 04/25/19 at 15:45; Stop 04/25/19 at 15:46; Status DC Info (CONTRAST GIVEN -- Rx MONITORING) 1 each PRN DAILY PRN MC SEE COMMENTS; Start 04/25/19 at 15:45; Stop 04/27/19 at 15:44 Pantoprazole Sodium (PROTONIX VIAL for IV PUSH) 80 mg 1X ONCE IVP Last administered on 04/25/19 17:19; Start 04/25/19 at 17:00; Stop 04/25/19 at 17:01; Status DC Sodium Chloride 1,000 ml @ 1,000 mls/hr 1X ONCE IV Last administered on 04/25/19at 17:19; Start 04/25/19 at 17:00; Stop 04/25/19 at 17:59; Status DC Piperacillin Sod/ Tazobactam Sod 3.375 gm/Sodium Chloride 50 ml @ 100 mls/hr 1X ONCE IV Last administered on 04/25/19at 17:19; Start 04/25/19 at 17:00; Stop 04/25/19 at 17:29; Status DC Fentanyl Citrate (Fentanyl 2ml Vial) 50 mcg 1X ONCE IV Last administered on 04/25/19at 17:19; Start 04/25/19 at 17:30; Stop 04/25/19 at 17:31; Status DC Sodium Chloride 1,000 ml @ 150 mls/hr Q6H40M IV Last administered on 04/25/19at 19:38; Start 04/25/19 at 18:00; Stop 04/26/19 at 17:59 Fentanyl Citrate (Fentanyl 2ml Vial) 50 mcg PRN Q2HR PRN IV PAIN Last administered on 04/25/19at 21:24; Start 04/25/19 at 17:30; Stop 04/26/19 at 01:39; Status DC Acetaminophen/ Codeine Phosphate (Tylenol #3) 1 tab PRN Q6HRS PRN PO MODERATE PAIN; Start 04/25/19 at 17:30 Ondansetron HCl (Zofran) 4 mg PRN Q6HRS PRN IV NAUSEA/VOMITING; Start 04/25/19 at 17:30; Stop 04/26/19 at 01:39; Status DC Labetalol HCl (Normodyne Iv Push) 10 mg PRN Q2HR PRN IVP HYPERTENSION; Start 04/25/19 at 17:30 Diphenhydramine HCl (Benadryl) 25 mg PRN QHS PRN IVP sleep; Start 04/25/19 at 17:30 Pantoprazole Sodium (PROTONIX VIAL for IV PUSH) 40 mg DAILYAC IVP Last administered on 04/26/19at 08:14; Start 04/26/19 at 07:30 Tamsulosin HCl (Flomax) 0.8 mg DAILY PO ; Start 04/26/19 at 09:00 Propofol 20 ml @ As Directed STK-MED ONCE IV ; Start 04/25/19 at 23:25; Stop 04/25/19 at 23:26; Status DC Lidocaine HCl (Lidocaine Pf 2% Vial) 5 ml STK-MED ONCE .ROUTE ; Start 04/25/19 at 23:25; Stop 04/25/19 at 23:26; Status DC Fentanyl Citrate (Fentanyl 2ml Vial) 100 mcg STK-MED ONCE .ROUTE ; Start 04/25/19 at 23:26; Stop 04/25/19 at 23:26; Status DC Succinylcholine Chloride (Anectine) 200 mg STK-MED ONCE .ROUTE ; Start 04/25/19 at 23:26; Stop 04/25/19 at 23:26; Status DC Rocuronium [place] (Zemuron) 50 mg STK-MED ONCE .ROUTE ; Start 04/25/19 at 23:26; Stop 04/25/19 at 23:26; Status DC Ondansetron HCl (Zofran) 4 mg PRN Q6HRS PRN IV NAUSEA/VOMITING; Start 04/25/19 at 23:45; Stop 04/26/19 at 23:44 Fentanyl Citrate (Fentanyl 2ml Vial) 25 mcg PRN Q5MIN PRN IV MILD PAIN 1-3; Start 04/25/19 at 23:45; Stop 04/26/19 at 23:44 Fentanyl Citrate (Fentanyl 2ml Vial) 50 mcg PRN Q5MIN PRN IV MODERATE TO SEVERE PAIN Last administered on 04/26/19at 02:06; Start 04/25/19 at 23:45; Stop 04/26/19 at 23:44 Morphine Sulfate (Morphine Sulfate) 1 mg PRN Q10MIN PRN IV SEVERE PAIN 7-10; Start 04/25/19 at 23:45; Stop 04/26/19 at 23:44 Ringer's Solution 1,000 ml @ 30 mls/hr Q24H IV ; Start 04/25/19 at 23:35; Stop 04/26/19 at 11:34 Hydromorphone HCl (Dilaudid) 0.5 mg PRN Q10MIN PRN IV SEV PAIN, Second choice; Start 04/25/19 at 23:45; Stop 04/26/19 at 23:44 Prochlorperazine Edisylate (Compazine) 5 mg PACU PRN PRN IV NAUSEA, MRX1; Start 04/25/19 at 23:45; Stop 04/26/19 at 23:44 Bupivacaine HCl (Sensorcaine Mpf 0.5%) 30 ml STK-MED ONCE .ROUTE Last administered on 04/26/19at 00:52; Start 04/25/19 at 23:50; Stop 04/25/19 at 23:51; Status DC Ondansetron HCl (Zofran) 4 mg STK-MED ONCE .ROUTE ; Start 04/26/19 at 00:24; Stop 04/26/19 at 00:24; Status DC Dexamethasone Sodium Phosphate (Decadron) 4 mg STK-MED ONCE .ROUTE ; Start 04/26/19 at 00:24; Stop 04/26/19 at 00:24; Status DC Desflurane (Suprane) 30 ml STK-MED ONCE IH ; Start 04/26/19 at 00:24; Stop 04/26/19 at 00:24; Status DC Glycopyrrolate (Robinul) 1 mg STK-MED ONCE .ROUTE ; Start 04/26/19 at 00:33; Stop 04/26/19 at 00:33; Status DC Neostigmine Methylsulfate (Neostigmine Methylsulfate) 5 mg STK-MED ONCE .ROUTE ; Start 04/26/19 at 00:33; Stop 04/26/19 at 00:33; Status DC Ephedrine Sulfate (ePHEDrine PF IN SALINE SYRINGE) 50 mg STK-MED ONCE IV ; Start 04/26/19 at 00:41; Stop 04/26/19 at 00:41; Status DC Enoxaparin Sodium (Lovenox 40mg Syringe) 40 mg Q24H SQ ; Start 04/26/19 at 09:00 Sodium Chloride (Normal Saline Flush) 3 ml QSHIFT PRN IV AFTER MEDS AND BLOOD DRAWS; Start 04/26/19 at 01:30 Ringer's Solution 1,000 ml @ 100 mls/hr Q10H IV ; Start 04/26/19 at 01:28 Naloxone HCl (Narcan) 0.4 mg PRN Q2MIN PRN IV SEE INSTRUCTIONS; Start 04/26/19 at 01:30 Sodium Chloride 1,000 ml @ 25 mls/hr Q24H IV Last administered on 04/26/19at 03:50; Start 04/26/19 at 02:00 Morphine Sulfate 30 ml @ 0 mls/hr CONT PRN PRN IV PER PROTOCOL Last administered on 04/26/19at 03:50; Start 04/26/19 at 01:30 Ondansetron HCl (Zofran) 4 mg PRN Q6HRS PRN IV NAUESA, 1ST CHOICE; Start 04/26/19 at 01:30 Fentanyl Citrate (Fentanyl 2ml Vial) 100 mcg STK-MED ONCE .ROUTE ; Start 04/26/19 at 01:42; Stop 04/26/19 at 01:42; Status DC Active Scripts Active Reported Tamsulosin Hcl 0.4 Mg Cap.er.24h 0.8 Mg PO DAILY Vitals/I & O Vital Sign - Last 24 Hours 04/25/19 04/25/19 04/25/19 04/25/19 14:17 14:22 14:52 15:22 Temp 97.7 97.7 Pulse 64 66 62 62 Resp 20 B/P (MAP) 139/99 (112) 136/91 (106) 151/91 (111) 151/91 (111) Pulse Ox 99 99 96 98 O2 Delivery Room Air Room Air Room Air Room Air 04/25/19 04/25/19 04/25/19 04/25/19 15:27 15:52 16:15 16:45 Pulse 68 86 78 Resp 18 B/P (MAP) 153/91 (111) 173/95 (121) 155/88 (110) Pulse Ox 98 96 98 97 O2 Delivery Room Air Room Air Room Air Room Air 04/25/19 04/25/19 04/25/19 04/25/19 17:15 17:19 17:23 17:45 Pulse 76 78 Resp 17 17 18 B/P (MAP) 150/83 (105) 140/81 (100) Pulse Ox 96 95 95 93 O2 Delivery Room Air Room Air Room Air Room Air 04/25/19 04/25/19 04/25/19 04/25/19 18:10 18:15 18:49 19:18 Pulse 72 80 70 Resp 17 23 B/P (MAP) 145/86 (105) 129/85 (100) 142/84 (103) Pulse Ox 95 96 95 97 O2 Delivery Room Air Room Air Room Air Room Air 04/25/19 04/25/19 04/25/19 04/25/19 19:48 20:15 21:13 23:25 Temp 98.5 98.7 98.5 98.7 Pulse 72 69 81 Resp 25 16 16 B/P (MAP) 142/87 (105) 150/85 (106) 143/82 (102) Pulse Ox 95 96 94 O2 Delivery Room Air Non-Rebreather Room Air Room Air 04/26/19 04/26/19 04/26/19 04/26/19 01:32 01:32 01:44 01:48 Temp 97.9 97.9 97.9 97.9 Pulse 87 73 Resp 13 19 B/P (MAP) 176/82 149/75 Pulse Ox 100 99 98 O2 Delivery Mask Simple Mask Simple Mask Simple Mask O2 Flow Rate 6 6 6.0 6.0 04/26/19 04/26/19 04/26/19 04/26/19 02:03 02:06 02:18 02:30 Temp 97.9 97.9 98.2 97.9 97.9 98.2 Pulse 77 73 80 Resp 25 23 22 20 B/P (MAP) 147/79 137/71 136/78 (97) Pulse Ox 97 97 97 94 O2 Delivery Nasal Cannula Nasal Cannula Nasal Cannula Nasal Cannula O2 Flow Rate 2.0 2.0 2.0 2.0 04/26/19 04/26/19 04/26/19 04/26/19 02:45 03:15 03:45 03:50 Temp 98.5 98.1 98.1 98.5 98.1 98.1 Pulse 66 68 76 Resp 20 18 18 20 B/P (MAP) 128/77 (94) 139/83 (101) 142/78 (99) Pulse Ox 93 97 98 O2 Delivery Nasal Cannula Nasal Cannula Nasal Cannula Nasal Cannula O2 Flow Rate 2.0 2.0 2.0 2.0 04/26/19 04/26/19 04/26/19 04/26/19 04:30 04:46 05:00 06:00 Pulse 74 72 82 Resp 20 20 17 15 B/P (MAP) 142/78 (99) 142/76 (98) 123/75 (91) Pulse Ox 98 98 97 97 O2 Delivery Nasal Cannula Nasal Cannula Nasal Cannula Nasal Cannula O2 Flow Rate 2.0 2.0 2.0 2.0 04/26/19 04/26/19 04/26/19 07:00 07:00 08:00 Temp 98.2 98.2 Pulse 83 76 Resp 18 19 B/P (MAP) 120/84 (96) 123/76 (92) Pulse Ox 98 97 O2 Delivery Nasal Cannula Nasal Cannula Nasal Cannula O2 Flow Rate 1.0 2.0 1.0 Intake and Output 04/25/19 04/25/19 04/26/19 15:00 23:00 07:00 Intake Total 2874 ml 975 ml Output Total 650 ml Balance 2874 ml 325 ml EUGENE CAREY MD Apr 26, 2019 10:48
[2019-04-26] MEDS: POTASSIUM CL 20MEQ D5-0.45NACL 1,000 ML IV SCH ×2 (11:28→17:27)
[2019-04-26] MEDS ORDERED: SODIUM CHL/ALOE VERA NASAL GEL 14.1GM TUBE. NS PRN (12:00)
--- NOTE | 2019-04-26 12:00 | PDOC ---
SURGICAL PROGRESS NOTE Subjective pain managed, sharp intermittent pains mild nausea Vital Signs Vital Signs Date Time Temp Pulse Resp B/P (MAP) Pulse Ox O2 Delivery O2 Flow Rate FiO2 04/26/19 08:00 Nasal Cannula 1.0 04/26/19 07:00 76 19 123/76 (92) 97 04/26/19 07:00 98.2 98.2 I&O Intake and Output 04/26/19 07:01 Intake Total 3849 ml Output Total 650 ml Balance 3199 ml Intake Oral 0 ml IV Total 3574 ml Other 275 ml Output Urine Total 650 ml # Voids 2 PATIENT HAS A SAWANT: Yes General: Alert, Oriented X3, Cooperative, No acute distress Abdomen: Soft, Other (dressing dry, incisional TTP) Labs Laboratory Tests Test 04/25/19 14:40 04/25/19 16:35 White Blood Count 6.5 x10^3/uL (4.0-11.0) Red Blood Count 4.60 x10^6/uL (4.30-5.70) Hemoglobin 15.2 g/dL (13.0-17.5) Hematocrit 44.7 % (39.0-53.0) Mean Corpuscular Volume 97 fL (79-100) Mean Corpuscular Hemoglobin 33 pg (25-35) Mean Corpuscular Hemoglobin Concent 34 g/dL (31-37) Red Cell Distribution Width 12.9 % (11.5-14.5) Platelet Count 246 x10^3/uL (140-400) Neutrophils (%) (Auto) 75 % (31-73) Lymphocytes (%) (Auto) 15 % (24-48) Monocytes (%) (Auto) 9 % (0-9) Eosinophils (%) (Auto) 1 % (0-3) Basophils (%) (Auto) 0 % (0-3) Neutrophils # (Auto) 4.9 x10^3/uL (1.8-7.7) Lymphocytes # (Auto) 1.0 x10^3/uL (1.0-4.8) Monocytes # (Auto) 0.6 x10^3/uL (0.0-1.1) Eosinophils # (Auto) 0.0 x10^3/uL (0.0-0.7) Basophils # (Auto) 0.0 x10^3/uL (0.0-0.2) Prothrombin Time 13.3 SEC (11.7-14.0) Prothromb Time International Ratio 1.0 (0.8-1.1) Sodium Level 137 mmol/L (136-145) Potassium Level 3.7 mmol/L (3.5-5.1) Chloride Level 102 mmol/L (98-107) Carbon Dioxide Level 27 mmol/L (21-32) Anion Gap 8 (6-14) Blood Urea Nitrogen 19 mg/dL (8-26) Creatinine 1.0 mg/dL (0.7-1.3) Estimated GFR (Cockcroft-Gault) 77.6 BUN/Creatinine Ratio 19 (6-20) Glucose Level 104 mg/dL (70-99) Calcium Level 9.1 mg/dL (8.5-10.1) Total Bilirubin 0.6 mg/dL (0.2-1.0) Aspartate Amino Transf (AST/SGOT) 14 U/L (15-37) Alanine Aminotransferase (ALT/SGPT) 23 U/L (16-63) Alkaline Phosphatase 70 U/L (46-116) Creatine Kinase 146 U/L (39-308) Troponin I Quantitative < 0.017 ng/mL (0.000-0.055) Total Protein 7.4 g/dL (6.4-8.2) Albumin 3.8 g/dL (3.4-5.0) Albumin/Globulin Ratio 1.1 (1.0-1.7) Lipase 79 U/L (73-393) Urine Collection Type Unknown Urine Color Yellow Urine Clarity Clear Urine pH 5.0 Urine Specific [place] >=1.030 Urine Protein Negative mg/dL (NEG-TRACE) Urine Glucose (UA) Negative mg/dL (NEG) Urine Ketones (Stick) 15 mg/dL (NEG) Urine Blood Trace (NEG) Urine Nitrite Negative (NEG) Urine Bilirubin Negative (NEG) Urine Urobilinogen Dipstick 0.2 mg/dL (0.2 mg/dL) Urine Leukocyte Esterase Negative (NEG) Urine RBC Rare /HPF (0-2) Urine WBC 0 /HPF (0-4) Urine Squamous Epithelial Cells Occ /LPF Urine Bacteria 0 /HPF (0-FEW) Urine Mucus Mod /LPF Laboratory Tests Test 04/25/19 14:40 04/25/19 16:35 White Blood Count 6.5 x10^3/uL (4.0-11.0) Red Blood Count 4.60 x10^6/uL (4.30-5.70) Hemoglobin 15.2 g/dL (13.0-17.5) Hematocrit 44.7 % (39.0-53.0) Mean Corpuscular Volume 97 fL (79-100) Mean Corpuscular Hemoglobin 33 pg (25-35) Mean Corpuscular Hemoglobin Concent 34 g/dL (31-37) Red Cell Distribution Width 12.9 % (11.5-14.5) Platelet Count 246 x10^3/uL (140-400) Neutrophils (%) (Auto) 75 % (31-73) Lymphocytes (%) (Auto) 15 % (24-48) Monocytes (%) (Auto) 9 % (0-9) Eosinophils (%) (Auto) 1 % (0-3) Basophils (%) (Auto) 0 % (0-3) Neutrophils # (Auto) 4.9 x10^3/uL (1.8-7.7) Lymphocytes # (Auto) 1.0 x10^3/uL (1.0-4.8) Monocytes # (Auto) 0.6 x10^3/uL (0.0-1.1) Eosinophils # (Auto) 0.0 x10^3/uL (0.0-0.7) Basophils # (Auto) 0.0 x10^3/uL (0.0-0.2) Prothrombin Time 13.3 SEC (11.7-14.0) Prothromb Time International Ratio 1.0 (0.8-1.1) Sodium Level 137 mmol/L (136-145) Potassium Level 3.7 mmol/L (3.5-5.1) Chloride Level 102 mmol/L (98-107) Carbon Dioxide Level 27 mmol/L (21-32) Anion Gap 8 (6-14) Blood Urea Nitrogen 19 mg/dL (8-26) Creatinine 1.0 mg/dL (0.7-1.3) Estimated GFR (Cockcroft-Gault) 77.6 BUN/Creatinine Ratio 19 (6-20) Glucose Level 104 mg/dL (70-99) Calcium Level 9.1 mg/dL (8.5-10.1) Total Bilirubin 0.6 mg/dL (0.2-1.0) Aspartate Amino Transf (AST/SGOT) 14 U/L (15-37) Alanine Aminotransferase (ALT/SGPT) 23 U/L (16-63) Alkaline Phosphatase 70 U/L (46-116) Creatine Kinase 146 U/L (39-308) Troponin I Quantitative < 0.017 ng/mL (0.000-0.055) Total Protein 7.4 g/dL (6.4-8.2) Albumin 3.8 g/dL (3.4-5.0) Albumin/Globulin Ratio 1.1 (1.0-1.7) Lipase 79 U/L (73-393) Urine Collection Type Unknown Urine Color Yellow Urine Clarity Clear Urine pH 5.0 Urine Specific [place] >=1.030 Urine Protein Negative mg/dL (NEG-TRACE) Urine Glucose (UA) Negative mg/dL (NEG) Urine Ketones (Stick) 15 mg/dL (NEG) Urine Blood Trace (NEG) Urine Nitrite Negative (NEG) Urine Bilirubin Negative (NEG) Urine Urobilinogen Dipstick 0.2 mg/dL (0.2 mg/dL) Urine Leukocyte Esterase Negative (NEG) Urine RBC Rare /HPF (0-2) Urine WBC 0 /HPF (0-4) Urine Squamous Epithelial Cells Occ /LPF Urine Bacteria 0 /HPF (0-FEW) Urine Mucus Mod /LPF Problem List Problems Medical Problems: (1) Perforated intestine Status: Acute (2) Pneumoperitoneum Status: Acute Assessment/Plan s/p perf ulcer repair bowel rest, PPI, NICKEL,ANGY L [employer] Apr 26, 2019 12:00
[2019-04-26] MEDS: ENOXAPARIN 40 MG/0.4 ML SYRINGE. SQ SCH (22:44)
[2019-04-27] MEDS: IV NORMAL SALINE 1000ML BAG 1,000 ML IV SCH (02:00)
[2019-04-27 03:00] VITALS: BP 148/95
[2019-04-27] MEDS: POTASSIUM CL 20MEQ D5-0.45NACL 1,000 ML IV SCH ×2 (05:00→10:40)
[2019-04-27 05:47] LABS: BASO % 0 % (0-3); EOS % 0 % (0-3); HEMATOCRIT 44.2 % (39.0-53.0); HEMOGLOBIN 14.7 g/dL (13.0-17.5); LYMPH # 0.9 x10^3/uL (1.0-4.8); LYMPH % 9 % (24-48); MEAN CORPUSCULAR HEMOGLOBIN 33 pg (25-35); MEAN CORPUSCULAR HGB CONC 33 g/dL (31-37); MEAN CORPUSCULAR VOLUME 98 fL (79-100); MONO % 9 % (0-9); NEUT # 8.5 x10^3/uL (1.8-7.7); NEUT % 81 % (31-73); PLATELET COUNT 223 x10^3/uL (140-400); RED BLOOD COUNT 4.51 x10^6/uL (4.30-5.70); WHITE BLOOD COUNT 10.4 x10^3/uL (4.0-11.0)
[2019-04-27 05:49] LABS: CALCIUM 8.6 mg/dL (8.5-10.1); GFR 77.6; POTASSIUM 4.4 mmol/L (3.5-5.1)
[2019-04-27] MEDS: PANTOPRAZOLE IV PUSH 40 MG VIAL. IVP SCH (06:20)
[2019-04-27 07:00] VITALS: BP 148/87
[2019-04-27] MEDS: TAMSULOSIN 0.4 MG CAP.ER.24H. PO SCH (07:03)
[2019-04-27 11:00] VITALS: BP 141/91
--- NOTE | 2019-04-27 12:19 | PDOC ---
SURGICAL PROGRESS NOTE Subjective resting pain managed no n/v no flatus Vital Signs Vital Signs Date Time Temp Pulse Resp B/P (MAP) Pulse Ox O2 Delivery O2 Flow Rate FiO2 04/27/19 07:31 Room Air 04/27/19 07:00 99.7 86 14 148/87 (107) 93 99.7 04/26/19 11:00 1.0 I&O Intake and Output 04/27/19 07:00 Intake Total 200 ml Output Total 3300 ml Balance -3100 ml IV Total 200 ml Output Urine Total 3300 ml General: Alert, Oriented X3, Cooperative, No acute distress Abdomen: Soft, Other (dressing dry) Labs Laboratory Tests Test 04/25/19 14:40 04/25/19 16:35 04/27/19 04:30 04/27/19 05:00 White Blood Count 6.5 x10^3/uL (4.0-11.0) 10.4 x10^3/uL (4.0-11.0) Red Blood Count 4.60 x10^6/uL (4.30-5.70) 4.51 x10^6/uL (4.30-5.70) Hemoglobin 15.2 g/dL (13.0-17.5) 14.7 g/dL (13.0-17.5) Hematocrit 44.7 % (39.0-53.0) 44.2 % (39.0-53.0) Mean Corpuscular Volume 97 fL (79-100) 98 fL (79-100) Mean Corpuscular Hemoglobin 33 pg (25-35) 33 pg (25-35) Mean Corpuscular Hemoglobin Concent 34 g/dL (31-37) 33 g/dL (31-37) Red Cell Distribution Width 12.9 % (11.5-14.5) 13.0 % (11.5-14.5) Platelet Count 246 x10^3/uL (140-400) 223 x10^3/uL (140-400) Neutrophils (%) (Auto) 75 % (31-73) 81 % (31-73) Lymphocytes (%) (Auto) 15 % (24-48) 9 % (24-48) Monocytes (%) (Auto) 9 % (0-9) 9 % (0-9) Eosinophils (%) (Auto) 1 % (0-3) 0 % (0-3) Basophils (%) (Auto) 0 % (0-3) 0 % (0-3) Neutrophils # (Auto) 4.9 x10^3/uL (1.8-7.7) 8.5 x10^3/uL (1.8-7.7) Lymphocytes # (Auto) 1.0 x10^3/uL (1.0-4.8) 0.9 x10^3/uL (1.0-4.8) Monocytes # (Auto) 0.6 x10^3/uL (0.0-1.1) 1.0 x10^3/uL (0.0-1.1) Eosinophils # (Auto) 0.0 x10^3/uL (0.0-0.7) 0.0 x10^3/uL (0.0-0.7) Basophils # (Auto) 0.0 x10^3/uL (0.0-0.2) 0.0 x10^3/uL (0.0-0.2) Prothrombin Time 13.3 SEC (11.7-14.0) Prothromb Time International Ratio 1.0 (0.8-1.1) Sodium Level 137 mmol/L (136-145) 137 mmol/L (136-145) Potassium Level 3.7 mmol/L (3.5-5.1) 4.4 mmol/L (3.5-5.1) Chloride Level 102 mmol/L (98-107) 102 mmol/L (98-107) Carbon Dioxide Level 27 mmol/L (21-32) 30 mmol/L (21-32) Anion Gap 8 (6-14) 5 (6-14) Blood Urea Nitrogen 19 mg/dL (8-26) 11 mg/dL (8-26) Creatinine 1.0 mg/dL (0.7-1.3) 1.0 mg/dL (0.7-1.3) Estimated GFR (Cockcroft-Gault) 77.6 77.6 BUN/Creatinine Ratio 19 (6-20) Glucose Level 104 mg/dL (70-99) 103 mg/dL (70-99) Calcium Level 9.1 mg/dL (8.5-10.1) 8.6 mg/dL (8.5-10.1) Total Bilirubin 0.6 mg/dL (0.2-1.0) Aspartate Amino Transf (AST/SGOT) 14 U/L (15-37) Alanine Aminotransferase (ALT/SGPT) 23 U/L (16-63) Alkaline Phosphatase 70 U/L (46-116) Creatine Kinase 146 U/L (39-308) Troponin I Quantitative < 0.017 ng/mL (0.000-0.055) Total Protein 7.4 g/dL (6.4-8.2) Albumin 3.8 g/dL (3.4-5.0) Albumin/Globulin Ratio 1.1 (1.0-1.7) Lipase 79 U/L (73-393) Urine Collection Type Unknown Urine Color Yellow Urine Clarity Clear Urine pH 5.0 Urine Specific [place] >=1.030 Urine Protein Negative mg/dL (NEG-TRACE) Urine Glucose (UA) Negative mg/dL (NEG) Urine Ketones (Stick) 15 mg/dL (NEG) Urine Blood Trace (NEG) Urine Nitrite Negative (NEG) Urine Bilirubin Negative (NEG) Urine Urobilinogen Dipstick 0.2 mg/dL (0.2 mg/dL) Urine Leukocyte Esterase Negative (NEG) Urine RBC Rare /HPF (0-2) Urine WBC 0 /HPF (0-4) Urine Squamous Epithelial Cells Occ /LPF Urine Bacteria 0 /HPF (0-FEW) Urine Mucus Mod /LPF Laboratory Tests Test 04/27/19 04:30 04/27/19 05:00 White Blood Count 10.4 x10^3/uL (4.0-11.0) Red Blood Count 4.51 x10^6/uL (4.30-5.70) Hemoglobin 14.7 g/dL (13.0-17.5) Hematocrit 44.2 % (39.0-53.0) Mean Corpuscular Volume 98 fL (79-100) Mean Corpuscular Hemoglobin 33 pg (25-35) Mean Corpuscular Hemoglobin Concent 33 g/dL (31-37) Red Cell Distribution Width 13.0 % (11.5-14.5) Platelet Count 223 x10^3/uL (140-400) Neutrophils (%) (Auto) 81 % (31-73) Lymphocytes (%) (Auto) 9 % (24-48) Monocytes (%) (Auto) 9 % (0-9) Eosinophils (%) (Auto) 0 % (0-3) Basophils (%) (Auto) 0 % (0-3) Neutrophils # (Auto) 8.5 x10^3/uL (1.8-7.7) Lymphocytes # (Auto) 0.9 x10^3/uL (1.0-4.8) Monocytes # (Auto) 1.0 x10^3/uL (0.0-1.1) Eosinophils # (Auto) 0.0 x10^3/uL (0.0-0.7) Basophils # (Auto) 0.0 x10^3/uL (0.0-0.2) Sodium Level 137 mmol/L (136-145) Potassium Level 4.4 mmol/L (3.5-5.1) Chloride Level 102 mmol/L (98-107) Carbon Dioxide Level 30 mmol/L (21-32) Anion Gap 5 (6-14) Blood Urea Nitrogen 11 mg/dL (8-26) Creatinine 1.0 mg/dL (0.7-1.3) Estimated GFR (Cockcroft-Gault) 77.6 Glucose Level 103 mg/dL (70-99) Calcium Level 8.6 mg/dL (8.5-10.1) Problem List Problems Medical Problems: (1) Perforated intestine Status: Acute (2) Pneumoperitoneum Status: Acute Assessment/Plan s/p perf repair await bowel function, PPI ok for ice chips ekaterina rausch ambulate ANGY VASQUEZ APRN Apr 27, 2019 12:19
--- NOTE | 2019-04-27 14:24 | NUR ---
Removed rausch catheter per order, patient tolerated procedure well, will continue to monitor patient.
[2019-04-27] MEDS: IV DEXTROSE 5 %-0.45 % NACL 1,000 ML IV SCH (14:33)
[2019-04-27 15:00] VITALS: BP 141/83
[2019-04-27 19:00] VITALS: BP 123/83
[2019-04-27] MEDS: ENOXAPARIN 40 MG/0.4 ML SYRINGE. SQ SCH (21:09)
[2019-04-27 22:37] VITALS: BP 156/94
[2019-04-28] MEDS: IV DEXTROSE 5 %-0.45 % NACL 1,000 ML IV SCH ×3 (00:42→20:12)
[2019-04-28] MEDS: IV NORMAL SALINE 1000ML BAG 1,000 ML IV SCH (02:00)
[2019-04-28 02:46] VITALS: BP 148/83
[2019-04-28] MEDS: PANTOPRAZOLE IV PUSH 40 MG VIAL. IVP SCH (06:04)
[2019-04-28 07:00] VITALS: BP 136/91
[2019-04-28] MEDS: MORPHINE SULFATE/PF 30 ML IV PRN (07:39)
[2019-04-28] MEDS: TAMSULOSIN 0.4 MG CAP.ER.24H. PO SCH (08:00)
--- NOTE | 2019-04-28 08:30 | PDOC ---
SURGICAL PROGRESS NOTE Subjective + flatus pain managed no n/v ambulating Vital Signs Vital Signs Date Time Temp Pulse Resp B/P (MAP) Pulse Ox O2 Delivery O2 Flow Rate FiO2 04/28/19 08:01 95 Room Air 04/28/19 07:00 98.2 74 14 136/91 (106) 98.2 I&O Intake and Output 04/28/19 06:59 Output Total 1700 ml Balance -1700 ml Output Urine Total 1700 ml General: Alert, Oriented X3, Cooperative, No acute distress Abdomen: Soft, Other (ND, dressing dry) Labs Laboratory Tests Test 04/27/19 04:30 04/27/19 05:00 White Blood Count 10.4 x10^3/uL (4.0-11.0) Red Blood Count 4.51 x10^6/uL (4.30-5.70) Hemoglobin 14.7 g/dL (13.0-17.5) Hematocrit 44.2 % (39.0-53.0) Mean Corpuscular Volume 98 fL (79-100) Mean Corpuscular Hemoglobin 33 pg (25-35) Mean Corpuscular Hemoglobin Concent 33 g/dL (31-37) Red Cell Distribution Width 13.0 % (11.5-14.5) Platelet Count 223 x10^3/uL (140-400) Neutrophils (%) (Auto) 81 % (31-73) Lymphocytes (%) (Auto) 9 % (24-48) Monocytes (%) (Auto) 9 % (0-9) Eosinophils (%) (Auto) 0 % (0-3) Basophils (%) (Auto) 0 % (0-3) Neutrophils # (Auto) 8.5 x10^3/uL (1.8-7.7) Lymphocytes # (Auto) 0.9 x10^3/uL (1.0-4.8) Monocytes # (Auto) 1.0 x10^3/uL (0.0-1.1) Eosinophils # (Auto) 0.0 x10^3/uL (0.0-0.7) Basophils # (Auto) 0.0 x10^3/uL (0.0-0.2) Sodium Level 137 mmol/L (136-145) Potassium Level 4.4 mmol/L (3.5-5.1) Chloride Level 102 mmol/L (98-107) Carbon Dioxide Level 30 mmol/L (21-32) Anion Gap 5 (6-14) Blood Urea Nitrogen 11 mg/dL (8-26) Creatinine 1.0 mg/dL (0.7-1.3) Estimated GFR (Cockcroft-Gault) 77.6 Glucose Level 103 mg/dL (70-99) Calcium Level 8.6 mg/dL (8.5-10.1) Problem List Problems Medical Problems: (1) Perforated intestine Status: Acute (2) Pneumoperitoneum Status: Acute Assessment/Plan s/p perf ulcer repair 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
--- NOTE | 2019-04-28 10:43 | PDOC ---
PROGRESS NOTES Chief Complaint Chief Complaint IMPRESSION acute abd pain perforated duodenal ulcer s/p perf ulcer repair 2 mm nonobstructing calculus in inferior pole left kidney. No hydronephrosis. 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[employer]ER every 20-30 minutes for pain, pain 7/10 39 MIN PT EXAM, CHART REVIEW, > 50% of time spent with exam, chart review, pt care coordination Vitals Vitals Vital Signs Date Time Temp Pulse Resp B/P (MAP) Pulse Ox O2 Delivery O2 Flow Rate FiO2 04/28/19 08:01 95 Room Air 04/28/19 07:00 98.2 74 14 136/91 (106) 98.2 Physical Exam General: Alert, Oriented X3, Cooperative, No acute distress, mild distress Heart: Normal S1, Normal S2 Lungs: Clear, Other (lmiited vol dull bases, ) Abdomen: Soft, Other (ND, dressing dry) Extremities: No clubbing, No cyanosis, Normal pulses Skin: No rashes, No breakdown Labs LABS PQRS Compliance Statement: One or more of the following individualized dose reduction techniques were utilized for this examination: 1. Automated exposure control 2. Adjustment of the mA and/or kV according to patient size 3. Use of iterative reconstruction technique CT abdomen/pelvis with contrast 04/25/2019 2:49 PM INDICATION: Epigastric pain COMPARISON: None available TECHNIQUE: Multiple axial CT images of the abdomen and pelvis were obtained after the intravenous administration of 75 mL Omnipaque 300. Coronal and sagittal reformats are provided. FINDINGS: Lung bases are clear. Heart size is borderline enlarged. Patulous esophagus with small hiatal hernia. Liver, spleen, bilateral adrenal glands, pancreas and gallbladder are normal in appearance. Abdominal aorta is normal in course and caliber. Small to moderate volume pneumoperitoneum. Small volume free fluid is identified in the dependent portion of the pelvis. Mild inflammatory changes are identified involving the proximal duodenum. Consideration may be given for perforated duodenal ulcer. Stomach wall appears normal. Small and large bowel are normal in caliber. No evidence for bowel obstruction or inflammation. Mild diverticulosis. The kidneys enhance symmetrically. There is no suspicious renal mass. There is no hydronephrosis. There are no suspected calculi within the kidneys, ureters or urinary bladder. There may be a 2 mm nonobstructing calculus in inferior pole the left kidney. Simple cyst is identified in the posterior interpolar left kidney measuring 12 mm. No suspicious renal mass. No hydronephrosis. Urinary bladder is within normal limits given degree of distention. Prostate and seminal vesicles appear normal. No suspicious osseous normality is identified. IMPRESSION: 1. Small to moderate volume pneumoperitoneum. Consideration may be given for perforated duodenal ulcer given minimal wall thickening in the region of the proximal duodenum. 2. No bowel obstruction. Mild diverticulosis without adjacent inflammation. 3. 2 mm nonobstructing calculus in inferior pole left kidney. No hydronephrosis. Assessment and Plan Assessmemt and Plan Problems Medical Problems: (1) Perforated intestine Status: Acute (2) Pneumoperitoneum Status: Acute Comment Review of Relevant I have reviewed the following items nirmal (where applicable) has been applied. Labs Laboratory Tests Test 04/27/19 04:30 04/27/19 05:00 White Blood Count 10.4 x10^3/uL (4.0-11.0) Red Blood Count 4.51 x10^6/uL (4.30-5.70) Hemoglobin 14.7 g/dL (13.0-17.5) Hematocrit 44.2 % (39.0-53.0) Mean Corpuscular Volume 98 fL (79-100) Mean Corpuscular Hemoglobin 33 pg (25-35) Mean Corpuscular Hemoglobin Concent 33 g/dL (31-37) Red Cell Distribution Width 13.0 % (11.5-14.5) Platelet Count 223 x10^3/uL (140-400) Neutrophils (%) (Auto) 81 % (31-73) Lymphocytes (%) (Auto) 9 % (24-48) Monocytes (%) (Auto) 9 % (0-9) Eosinophils (%) (Auto) 0 % (0-3) Basophils (%) (Auto) 0 % (0-3) Neutrophils # (Auto) 8.5 x10^3/uL (1.8-7.7) Lymphocytes # (Auto) 0.9 x10^3/uL (1.0-4.8) Monocytes # (Auto) 1.0 x10^3/uL (0.0-1.1) Eosinophils # (Auto) 0.0 x10^3/uL (0.0-0.7) Basophils # (Auto) 0.0 x10^3/uL (0.0-0.2) Sodium Level 137 mmol/L (136-145) Potassium Level 4.4 mmol/L (3.5-5.1) Chloride Level 102 mmol/L (98-107) Carbon Dioxide Level 30 mmol/L (21-32) Anion Gap 5 (6-14) Blood Urea Nitrogen 11 mg/dL (8-26) Creatinine 1.0 mg/dL (0.7-1.3) Estimated GFR (Cockcroft-Gault) 77.6 Glucose Level 103 mg/dL (70-99) Calcium Level 8.6 mg/dL (8.5-10.1) Medications Current Medications Sodium Chloride 1,000 ml @ 1,000 mls/hr Q1H IV Last administered on 04/25/19 15:27; Start 04/25/19 at 14:49; Stop 04/25/19 at 15:48; Status DC Fentanyl Citrate (Fentanyl 2ml Vial) 50 mcg 1X ONCE IV Last administered on 04/25/19 15:27; Start 04/25/19 at 15:00; Stop 04/25/19 at 15:01; Status DC Ondansetron HCl (Zofran) 4 mg 1X ONCE IV Last administered on 04/25/19 15:27; Start 04/25/19 at 15:00; Stop 04/25/19 at 15:01; Status DC Iohexol (Omnipaque 300 Mg/ml) 75 ml 1X ONCE IV Last administered on 04/25/19at 16:09; Start 04/25/19 at 15:45; Stop 04/25/19 at 15:46; Status DC Info (CONTRAST GIVEN -- Rx MONITORING) 1 each PRN DAILY PRN MC SEE COMMENTS; Start 04/25/19 at 15:45; Stop 04/27/19 at 15:44; Status DC Pantoprazole Sodium (PROTONIX VIAL for IV PUSH) 80 mg 1X ONCE IVP Last administered on 04/25/19at 17:19; Start 04/25/19 at 17:00; Stop 04/25/19 at 17:01; Status DC Sodium Chloride 1,000 ml @ 1,000 mls/hr 1X ONCE IV Last administered on 04/25/19at 17:19; Start 04/25/19 at 17:00; Stop 04/25/19 at 17:59; Status DC Piperacillin Sod/ Tazobactam Sod 3.375 gm/Sodium Chloride 50 ml @ 100 mls/hr 1X ONCE IV Last administered on 04/25/19at 17:19; Start 04/25/19 at 17:00; Stop 04/25/19 at 17:29; Status DC Fentanyl Citrate (Fentanyl 2ml Vial) 50 mcg 1X ONCE IV Last administered on 04/25/19at 17:19; Start 04/25/19 at 17:30; Stop 04/25/19 at 17:31; Status DC Sodium Chloride 1,000 ml @ 150 mls/hr Q6H40M IV Last administered on 04/25/19at 19:38; Start 04/25/19 at 18:00; Stop 04/26/19 at 10:49; Status DC Fentanyl Citrate (Fentanyl 2ml Vial) 50 mcg PRN Q2HR PRN IV PAIN Last administered on 04/25/19at 21:24; Start 04/25/19 at 17:30; Stop 04/26/19 at 01:39; Status DC Acetaminophen/ Codeine Phosphate (Tylenol #3) 1 tab PRN Q6HRS PRN PO MODERATE PAIN; Start 04/25/19 at 17:30 Ondansetron HCl (Zofran) 4 mg PRN Q6HRS PRN IV NAUSEA/VOMITING; Start 04/25/19 at 17:30; Stop 04/26/19 at 01:39; Status DC Labetalol HCl (Normodyne Iv Push) 10 mg PRN Q2HR PRN IVP HYPERTENSION; Start 04/25/19 at 17:30 Diphenhydramine HCl (Benadryl) 25 mg PRN QHS PRN IVP sleep; Start 04/25/19 at 17:30 Pantoprazole Sodium (PROTONIX VIAL for IV PUSH) 40 mg DAILYAC IVP Last administered on 04/28/19at 06:04; Start 04/26/19 at 07:30 Tamsulosin HCl (Flomax) 0.8 mg DAILY PO Last administered on 04/28/19at 08:01; Start 04/26/19 at 09:00 Propofol 20 ml @ As Directed STK-MED ONCE IV ; Start 04/25/19 at 23:25; Stop 04/25/19 at 23:26; Status DC Lidocaine HCl (Lidocaine Pf 2% Vial) 5 ml STK-MED ONCE .ROUTE ; Start 04/25/19 at 23:25; Stop 04/25/19 at 23:26; Status DC Fentanyl Citrate (Fentanyl 2ml Vial) 100 mcg STK-MED ONCE .ROUTE ; Start 04/25/19 at 23:26; Stop 04/25/19 at 23:26; Status DC Succinylcholine Chloride (Anectine) 200 mg STK-MED ONCE .ROUTE ; Start 04/25/19 at 23:26; Stop 04/25/19 at 23:26; Status DC Rocuronium [place] (Zemuron) 50 mg STK-MED ONCE .ROUTE ; Start 04/25/19 at 23:26; Stop 04/25/19 at 23:26; Status DC Ondansetron HCl (Zofran) 4 mg PRN Q6HRS PRN IV NAUSEA/VOMITING; Start 04/25/19 at 23:45; Stop 04/26/19 at 23:44; Status DC Fentanyl Citrate (Fentanyl 2ml Vial) 25 mcg PRN Q5MIN PRN IV MILD PAIN 1-3; Start 04/25/19 at 23:45; Stop 04/26/19 at 23:44; Status DC Fentanyl Citrate (Fentanyl 2ml Vial) 50 mcg PRN Q5MIN PRN IV MODERATE TO SEVERE PAIN Last administered on 04/26/19at 02:06; Start 04/25/19 at 23:45; Stop 04/26/19 at 23:44; Status DC Morphine Sulfate (Morphine Sulfate) 1 mg PRN Q10MIN PRN IV SEVERE PAIN 7-10; Start 04/25/19 at 23:45; Stop 04/26/19 at 23:44; Status DC Ringer's Solution 1,000 ml @ 30 mls/hr Q24H IV ; Start 04/25/19 at 23:35; Stop 04/26/19 at 11:34; Status DC Hydromorphone HCl (Dilaudid) 0.5 mg PRN Q10MIN PRN IV SEV PAIN, Second choice; Start 04/25/19 at 23:45; Stop 04/26/19 at 23:44; Status DC Prochlorperazine Edisylate (Compazine) 5 mg PACU PRN PRN IV NAUSEA, MRX1; Start 04/25/19 at 23:45; Stop 04/26/19 at 23:44; Status DC Bupivacaine HCl (Sensorcaine Mpf 0.5%) 30 ml STK-MED ONCE .ROUTE Last administered on 04/26/19at 00:52; Start 04/25/19 at 23:50; Stop 04/25/19 at 23:51; Status DC Ondansetron HCl (Zofran) 4 mg STK-MED ONCE .ROUTE ; Start 04/26/19 at 00:24; Stop 04/26/19 at 00:24; Status DC Dexamethasone Sodium Phosphate (Decadron) 4 mg STK-MED ONCE .ROUTE ; Start 04/26/19 at 00:24; Stop 04/26/19 at 00:24; Status DC Desflurane (Suprane) 30 ml STK-MED ONCE IH ; Start 04/26/19 at 00:24; Stop 04/26/19 at 00:24; Status DC Glycopyrrolate (Robinul) 1 mg STK-MED ONCE .ROUTE ; Start 04/26/19 at 00:33; Stop 04/26/19 at 00:33; Status DC Neostigmine Methylsulfate (Neostigmine Methylsulfate) 5 mg STK-MED ONCE .ROUTE ; Start 04/26/19 at 00:33; Stop 04/26/19 at 00:33; Status DC Ephedrine Sulfate (ePHEDrine PF IN SALINE SYRINGE) 50 mg STK-MED ONCE IV ; Start 04/26/19 at 00:41; Stop 04/26/19 at 00:41; Status DC Enoxaparin Sodium (Lovenox 40mg Syringe) 40 mg Q24H SQ ; Start 04/26/19 at 09:00; Stop 04/26/19 at 10:45; Status DC Sodium Chloride (Normal Saline Flush) 3 ml QSHIFT PRN IV AFTER MEDS AND BLOOD DRAWS; Start 04/26/19 at 01:30 Ringer's Solution 1,000 ml @ 100 mls/hr Q10H IV ; Start 04/26/19 at 01:28; Stop 04/26/19 at 10:49; Status DC Naloxone HCl (Narcan) 0.4 mg PRN Q2MIN PRN IV SEE INSTRUCTIONS; Start 04/26/19 at 01:30 Sodium Chloride 1,000 ml @ 25 mls/hr Q24H IV Last administered on 04/26/19at 03:50; Start 04/26/19 at 02:00 Morphine Sulfate 30 ml @ 0 mls/hr CONT PRN PRN IV PER PROTOCOL Last administered on 04/28/19at 07:39; Start 04/26/19 at 01:30 Ondansetron HCl (Zofran) 4 mg PRN Q6HRS PRN IV NAUESA, 1ST CHOICE; Start 04/26/19 at 01:30 Fentanyl Citrate (Fentanyl 2ml Vial) 100 mcg STK-MED ONCE .ROUTE ; Start 04/26/19 at 01:42; Stop 04/26/19 at 01:42; Status DC Enoxaparin Sodium (Lovenox 40mg Syringe) 40 mg Q24H SQ Last administered on 04/27/19at 21:09; Start 04/26/19 at 21:00 Potassium Chloride/Dextrose/ Sod Cl 1,000 ml @ 125 mls/hr Q8H IV Last administered on 04/27/19at 10:40; Start 04/26/19 at 11:00; Stop 04/27/19 at 14:10; Status DC Sodium Chloride ([place] Saline Nasal) 1 cj PRN DAILY PRN NS NASAL CONGESTION Last administered on 04/26/19at 14:24; Start 04/26/19 at 12:00 Dextrose/Sodium Chloride 1,000 ml @ 100 mls/hr Q10H IV Last administered on 04/28/19at 08:02; Start 04/27/19 at 14:15 Active Scripts Active Reported Tamsulosin Hcl 0.4 Mg Cap.er.24h 0.8 Mg PO DAILY Vitals/I & O Vital Sign - Last 24 Hours 04/27/19 04/27/19 04/27/19 04/27/19 11:00 15:00 19:00 20:00 Temp 99.7 98.2 98.9 99.7 98.2 98.9 Pulse 85 87 89 Resp 16 16 18 B/P (MAP) 141/91 (108) 141/83 (102) 123/83 (96) Pulse Ox 93 95 96 O2 Delivery Room Air Room Air Room Air Room Air 04/27/19 04/28/19 04/28/19 04/28/19 22:37 02:46 07:00 07:12 Temp 98.7 98.9 98.2 98.7 98.9 98.2 Pulse 77 68 74 Resp 18 18 14 B/P (MAP) 156/94 (114) 148/83 (104) 136/91 (106) Pulse Ox 96 94 95 O2 Delivery Room Air Room Air Room Air Room Air 04/28/19 04/28/19 07:39 08:01 Pulse Ox 95 95 O2 Delivery Room Air Room Air Intake and Output 04/27/19 04/27/19 04/28/19 14:59 22:59 06:59 Output Total 700 ml 1000 ml Balance -700 ml -1000 ml MARIA T GUY MD Apr 28, 2019 10:43
[2019-04-28 11:00] VITALS: BP 124/96
--- NOTE | 2019-04-28 13:34 | NUR ---
SS following for discharge planning. SS reviewed pt chart. Pt is from home with family and is currently on room air. PT recommended home independent at discharge. SS will continue to follow for discharge planning.
[2019-04-28 15:00] VITALS: BP 123/69
[2019-04-28 19:00] VITALS: BP_SYST 131; BP_SYST 159; BP_DIAS 79; BP_DIAS 87
[2019-04-28] MEDS: ENOXAPARIN 40 MG/0.4 ML SYRINGE. SQ SCH (22:02)
[2019-04-28 23:00] VITALS: BP 139/81
[2019-04-29 03:00] VITALS: BP 142/83
[2019-04-29] MEDS: IV NORMAL SALINE 1000ML BAG 1,000 ML IV SCH (05:39)
[2019-04-29] MEDS: PANTOPRAZOLE IV PUSH 40 MG VIAL. IVP SCH (05:48)
[2019-04-29] MEDS: IV DEXTROSE 5 %-0.45 % NACL 1,000 ML IV SCH (06:15)
[2019-04-29 06:22] LABS: BASO % 1 % (0-3); EOS # 0.3 x10^3/uL (0.0-0.7); EOS % 4 % (0-3); HEMATOCRIT 41.5 % (39.0-53.0); LYMPH # 1.2 x10^3/uL (1.0-4.8); LYMPH % 20 % (24-48); MEAN CORPUSCULAR HEMOGLOBIN 33 pg (25-35); MEAN CORPUSCULAR HGB CONC 34 g/dL (31-37); MEAN CORPUSCULAR VOLUME 98 fL (79-100); MONO # 0.6 x10^3/uL (0.0-1.1); MONO % 10 % (0-9); NEUT # 3.9 x10^3/uL (1.8-7.7); NEUT % 65 % (31-73); PLATELET COUNT 238 x10^3/uL (140-400); RED BLOOD COUNT 4.25 x10^6/uL (4.30-5.70)
[2019-04-29 06:35] LABS: ALBUMIN 2.7 g/dL (3.4-5.0); ALBUMIN/GLOBULIN RATIO 0.6 (1.0-1.7); CALCIUM 8.6 mg/dL (8.5-10.1); CREATININE 0.9 mg/dL (0.7-1.3); GFR 87.6; POTASSIUM 3.3 mmol/L (3.5-5.1); TOTAL BILIRUBIN 0.6 mg/dL (0.2-1.0); TOTAL PROTEIN 7.3 g/dL (6.4-8.2)
[2019-04-29 07:00] VITALS: BP 141/88
[2019-04-29] MEDS: TAMSULOSIN 0.4 MG CAP.ER.24H. PO SCH (08:38)
--- NOTE | 2019-04-29 08:59 | PDOC ---
SURGICAL PROGRESS NOTE Subjective tolerating diet having stools pain minimal Vital Signs Vital Signs Date Time Temp Pulse Resp B/P (MAP) Pulse Ox O2 Delivery O2 Flow Rate FiO2 04/29/19 07:00 98.3 65 20 141/88 (105) 96 Room Air 98.3 I&O Intake and Output 04/29/19 07:00 Intake Total 1210 ml Output Total 30 ml Balance 1180 ml Intake Oral 1210 ml Drainage Total 30 ml # Voids 9 General: Alert, Oriented X3, Cooperative, No acute distress Abdomen: Soft, Other (incision c/d/i, no erythema) Labs Laboratory Tests Test 04/29/19 05:00 White Blood Count 6.0 x10^3/uL (4.0-11.0) Red Blood Count 4.25 x10^6/uL (4.30-5.70) Hemoglobin 14.0 g/dL (13.0-17.5) Hematocrit 41.5 % (39.0-53.0) Mean Corpuscular Volume 98 fL (79-100) Mean Corpuscular Hemoglobin 33 pg (25-35) Mean Corpuscular Hemoglobin Concent 34 g/dL (31-37) Red Cell Distribution Width 13.0 % (11.5-14.5) Platelet Count 238 x10^3/uL (140-400) Neutrophils (%) (Auto) 65 % (31-73) Lymphocytes (%) (Auto) 20 % (24-48) Monocytes (%) (Auto) 10 % (0-9) Eosinophils (%) (Auto) 4 % (0-3) Basophils (%) (Auto) 1 % (0-3) Neutrophils # (Auto) 3.9 x10^3/uL (1.8-7.7) Lymphocytes # (Auto) 1.2 x10^3/uL (1.0-4.8) Monocytes # (Auto) 0.6 x10^3/uL (0.0-1.1) Eosinophils # (Auto) 0.3 x10^3/uL (0.0-0.7) Basophils # (Auto) 0.0 x10^3/uL (0.0-0.2) Sodium Level 136 mmol/L (136-145) Potassium Level 3.3 mmol/L (3.5-5.1) Chloride Level 101 mmol/L (98-107) Carbon Dioxide Level 28 mmol/L (21-32) Anion Gap 7 (6-14) Blood Urea Nitrogen 11 mg/dL (8-26) Creatinine 0.9 mg/dL (0.7-1.3) Estimated GFR (Cockcroft-Gault) 87.6 BUN/Creatinine Ratio 12 (6-20) Glucose Level 93 mg/dL (70-99) Calcium Level 8.6 mg/dL (8.5-10.1) Total Bilirubin 0.6 mg/dL (0.2-1.0) Aspartate Amino Transf (AST/SGOT) 16 U/L (15-37) Alanine Aminotransferase (ALT/SGPT) 23 U/L (16-63) Alkaline Phosphatase 60 U/L (46-116) Total Protein 7.3 g/dL (6.4-8.2) Albumin 2.7 g/dL (3.4-5.0) Albumin/Globulin Ratio 0.6 (1.0-1.7) Laboratory Tests Test 04/29/19 05:00 White Blood Count 6.0 x10^3/uL (4.0-11.0) Red Blood Count 4.25 x10^6/uL (4.30-5.70) Hemoglobin 14.0 g/dL (13.0-17.5) Hematocrit 41.5 % (39.0-53.0) Mean Corpuscular Volume 98 fL (79-100) Mean Corpuscular Hemoglobin 33 pg (25-35) Mean Corpuscular Hemoglobin Concent 34 g/dL (31-37) Red Cell Distribution Width 13.0 % (11.5-14.5) Platelet Count 238 x10^3/uL (140-400) Neutrophils (%) (Auto) 65 % (31-73) Lymphocytes (%) (Auto) 20 % (24-48) Monocytes (%) (Auto) 10 % (0-9) Eosinophils (%) (Auto) 4 % (0-3) Basophils (%) (Auto) 1 % (0-3) Neutrophils # (Auto) 3.9 x10^3/uL (1.8-7.7) Lymphocytes # (Auto) 1.2 x10^3/uL (1.0-4.8) Monocytes # (Auto) 0.6 x10^3/uL (0.0-1.1) Eosinophils # (Auto) 0.3 x10^3/uL (0.0-0.7) Basophils # (Auto) 0.0 x10^3/uL (0.0-0.2) Sodium Level 136 mmol/L (136-145) Potassium Level 3.3 mmol/L (3.5-5.1) Chloride Level 101 mmol/L (98-107) Carbon Dioxide Level 28 mmol/L (21-32) Anion Gap 7 (6-14) Blood Urea Nitrogen 11 mg/dL (8-26) Creatinine 0.9 mg/dL (0.7-1.3) Estimated GFR (Cockcroft-Gault) 87.6 BUN/Creatinine Ratio 12 (6-20) Glucose Level 93 mg/dL (70-99) Calcium Level 8.6 mg/dL (8.5-10.1) Total Bilirubin 0.6 mg/dL (0.2-1.0) Aspartate Amino Transf (AST/SGOT) 16 U/L (15-37) Alanine Aminotransferase (ALT/SGPT) 23 U/L (16-63) Alkaline Phosphatase 60 U/L (46-116) Total Protein 7.3 g/dL (6.4-8.2) Albumin 2.7 g/dL (3.4-5.0) Albumin/Globulin Ratio 0.6 (1.0-1.7) Problem List Problems Medical Problems: (1) Perforated intestine Status: Acute (2) Pneumoperitoneum Status: Acute Assessment/Plan advance diet dc evs tech oral ppi plan DC in AM ANGY VASQUEZ [employer] ADMINISTRATOR Apr 29, 2019 08:59
[2019-04-29] MEDS ORDERED: oxyCODONE/APAP 5/325 1 TAB TABLET PO PRN (09:00)
[2019-04-29] MEDS: DOCUSATE SODIUM 100 MG CAPSULE. PO SCH (09:43)
--- NOTE | 2019-04-29 10:48 | PDOC ---
PROGRESS NOTES Chief Complaint Chief Complaint IMPRESSION acute abd pain perforated duodenal ulcer s/p perf ulcer repair 2 mm nonobstructing calculus in inferior pole left kidney. No hydronephrosis. POD #3 laparoscopic converted to open duodenal ulcer repair with dion patch History of Present Illness History of Present Illness pain with deep breaths, d/c [employer] 27 MIN PT EXAM, CHART REVIEW, > 50% of time spent with exam, chart review, pt care coordination Vitals Vitals Vital Signs Date Time Temp Pulse Resp B/P (MAP) Pulse Ox O2 Delivery O2 Flow Rate FiO2 04/29/19 08:00 Room Air 04/29/19 07:00 98.3 65 20 141/88 (105) 96 98.3 Physical Exam General: Alert, Oriented X3, Cooperative, No acute distress Heart: Normal S1, Normal S2 Lungs: Clear, Other (lmiited vol dull bases, ) Abdomen: Soft, Other (incision c/d/i, no erythema) Extremities: No clubbing, No cyanosis, Normal pulses Skin: No rashes, No breakdown Labs LABS Laboratory Tests Test 04/29/19 05:00 White Blood Count 6.0 x10^3/uL (4.0-11.0) Red Blood Count 4.25 x10^6/uL (4.30-5.70) Hemoglobin 14.0 g/dL (13.0-17.5) Hematocrit 41.5 % (39.0-53.0) Mean Corpuscular Volume 98 fL (79-100) Mean Corpuscular Hemoglobin 33 pg (25-35) Mean Corpuscular Hemoglobin Concent 34 g/dL (31-37) Red Cell Distribution Width 13.0 % (11.5-14.5) Platelet Count 238 x10^3/uL (140-400) Neutrophils (%) (Auto) 65 % (31-73) Lymphocytes (%) (Auto) 20 % (24-48) Monocytes (%) (Auto) 10 % (0-9) Eosinophils (%) (Auto) 4 % (0-3) Basophils (%) (Auto) 1 % (0-3) Neutrophils # (Auto) 3.9 x10^3/uL (1.8-7.7) Lymphocytes # (Auto) 1.2 x10^3/uL (1.0-4.8) Monocytes # (Auto) 0.6 x10^3/uL (0.0-1.1) Eosinophils # (Auto) 0.3 x10^3/uL (0.0-0.7) Basophils # (Auto) 0.0 x10^3/uL (0.0-0.2) Sodium Level 136 mmol/L (136-145) Potassium Level 3.3 mmol/L (3.5-5.1) Chloride Level 101 mmol/L (98-107) Carbon Dioxide Level 28 mmol/L (21-32) Anion Gap 7 (6-14) Blood Urea Nitrogen 11 mg/dL (8-26) Creatinine 0.9 mg/dL (0.7-1.3) Estimated GFR (Cockcroft-Gault) 87.6 BUN/Creatinine Ratio 12 (6-20) Glucose Level 93 mg/dL (70-99) Calcium Level 8.6 mg/dL (8.5-10.1) Total Bilirubin 0.6 mg/dL (0.2-1.0) Aspartate Amino Transf (AST/SGOT) 16 U/L (15-37) Alanine Aminotransferase (ALT/SGPT) 23 U/L (16-63) Alkaline Phosphatase 60 U/L (46-116) Total Protein 7.3 g/dL (6.4-8.2) Albumin 2.7 g/dL (3.4-5.0) Albumin/Globulin Ratio 0.6 (1.0-1.7) Assessment and Plan Assessmemt and Plan Problems Medical Problems: (1) Perforated intestine Status: Acute (2) Pneumoperitoneum Status: Acute Comment Review of Relevant I have reviewed the following items nirmal (where applicable) has been applied. Labs Laboratory Tests Test 04/29/19 05:00 White Blood Count 6.0 x10^3/uL (4.0-11.0) Red Blood Count 4.25 x10^6/uL (4.30-5.70) Hemoglobin 14.0 g/dL (13.0-17.5) Hematocrit 41.5 % (39.0-53.0) Mean Corpuscular Volume 98 fL (79-100) Mean Corpuscular Hemoglobin 33 pg (25-35) Mean Corpuscular Hemoglobin Concent 34 g/dL (31-37) Red Cell Distribution Width 13.0 % (11.5-14.5) Platelet Count 238 x10^3/uL (140-400) Neutrophils (%) (Auto) 65 % (31-73) Lymphocytes (%) (Auto) 20 % (24-48) Monocytes (%) (Auto) 10 % (0-9) Eosinophils (%) (Auto) 4 % (0-3) Basophils (%) (Auto) 1 % (0-3) Neutrophils # (Auto) 3.9 x10^3/uL (1.8-7.7) Lymphocytes # (Auto) 1.2 x10^3/uL (1.0-4.8) Monocytes # (Auto) 0.6 x10^3/uL (0.0-1.1) Eosinophils # (Auto) 0.3 x10^3/uL (0.0-0.7) Basophils # (Auto) 0.0 x10^3/uL (0.0-0.2) Sodium Level 136 mmol/L (136-145) Potassium Level 3.3 mmol/L (3.5-5.1) Chloride Level 101 mmol/L (98-107) Carbon Dioxide Level 28 mmol/L (21-32) Anion Gap 7 (6-14) Blood Urea Nitrogen 11 mg/dL (8-26) Creatinine 0.9 mg/dL (0.7-1.3) Estimated GFR (Cockcroft-Gault) 87.6 BUN/Creatinine Ratio 12 (6-20) Glucose Level 93 mg/dL (70-99) Calcium Level 8.6 mg/dL (8.5-10.1) Total Bilirubin 0.6 mg/dL (0.2-1.0) Aspartate Amino Transf (AST/SGOT) 16 U/L (15-37) Alanine Aminotransferase (ALT/SGPT) 23 U/L (16-63) Alkaline Phosphatase 60 U/L (46-116) Total Protein 7.3 g/dL (6.4-8.2) Albumin 2.7 g/dL (3.4-5.0) Albumin/Globulin Ratio 0.6 (1.0-1.7) Laboratory Tests Test 04/29/19 05:00 White Blood Count 6.0 x10^3/uL (4.0-11.0) Red Blood Count 4.25 x10^6/uL (4.30-5.70) Hemoglobin 14.0 g/dL (13.0-17.5) Hematocrit 41.5 % (39.0-53.0) Mean Corpuscular Volume 98 fL (79-100) Mean Corpuscular Hemoglobin 33 pg (25-35) Mean Corpuscular Hemoglobin Concent 34 g/dL (31-37) Red Cell Distribution Width 13.0 % (11.5-14.5) Platelet Count 238 x10^3/uL (140-400) Neutrophils (%) (Auto) 65 % (31-73) Lymphocytes (%) (Auto) 20 % (24-48) Monocytes (%) (Auto) 10 % (0-9) Eosinophils (%) (Auto) 4 % (0-3) Basophils (%) (Auto) 1 % (0-3) Neutrophils # (Auto) 3.9 x10^3/uL (1.8-7.7) Lymphocytes # (Auto) 1.2 x10^3/uL (1.0-4.8) Monocytes # (Auto) 0.6 x10^3/uL (0.0-1.1) Eosinophils # (Auto) 0.3 x10^3/uL (0.0-0.7) Basophils # (Auto) 0.0 x10^3/uL (0.0-0.2) Sodium Level 136 mmol/L (136-145) Potassium Level 3.3 mmol/L (3.5-5.1) Chloride Level 101 mmol/L (98-107) Carbon Dioxide Level 28 mmol/L (21-32) Anion Gap 7 (6-14) Blood Urea Nitrogen 11 mg/dL (8-26) Creatinine 0.9 mg/dL (0.7-1.3) Estimated GFR (Cockcroft-Gault) 87.6 BUN/Creatinine Ratio 12 (6-20) Glucose Level 93 mg/dL (70-99) Calcium Level 8.6 mg/dL (8.5-10.1) Total Bilirubin 0.6 mg/dL (0.2-1.0) Aspartate Amino Transf (AST/SGOT) 16 U/L (15-37) Alanine Aminotransferase (ALT/SGPT) 23 U/L (16-63) Alkaline Phosphatase 60 U/L (46-116) Total Protein 7.3 g/dL (6.4-8.2) Albumin 2.7 g/dL (3.4-5.0) Albumin/Globulin Ratio 0.6 (1.0-1.7) Medications Current Medications Sodium Chloride 1,000 ml @ 1,000 mls/hr Q1H IV Last administered on 04/25/19 15:27; Start 04/25/19 at 14:49; Stop 04/25/19 at 15:48; Status DC Fentanyl Citrate (Fentanyl 2ml Vial) 50 mcg 1X ONCE IV Last administered on 04/25/19 15:27; Start 04/25/19 at 15:00; Stop 04/25/19 at 15:01; Status DC Ondansetron HCl (Zofran) 4 mg 1X ONCE IV Last administered on 04/25/19 15:27; Start 04/25/19 at 15:00; Stop 04/25/19 at 15:01; Status DC Iohexol (Omnipaque 300 Mg/ml) 75 ml 1X ONCE IV Last administered on 04/25/19at 16:09; Start 04/25/19 at 15:45; Stop 04/25/19 at 15:46; Status DC Info (CONTRAST GIVEN -- Rx MONITORING) 1 each PRN DAILY PRN MC SEE COMMENTS; Start 04/25/19 at 15:45; Stop 04/27/19 at 15:44; Status DC Pantoprazole Sodium (PROTONIX VIAL for IV PUSH) 80 mg 1X ONCE IVP Last administered on 04/25/19 17:19; Start 04/25/19 at 17:00; Stop 04/25/19 at 17:01; Status DC Sodium Chloride 1,000 ml @ 1,000 mls/hr 1X ONCE IV Last administered on 04/25/19 17:19; Start 04/25/19 at 17:00; Stop 04/25/19 at 17:59; Status DC Piperacillin Sod/ Tazobactam Sod 3.375 gm/Sodium Chloride 50 ml @ 100 mls/hr 1X ONCE IV Last administered on 04/25/19 17:19; Start 04/25/19 at 17:00; Stop 04/25/19 at 17:29; Status DC Fentanyl Citrate (Fentanyl 2ml Vial) 50 mcg 1X ONCE IV Last administered on 04/25/19at 17:19; Start 04/25/19 at 17:30; Stop 04/25/19 at 17:31; Status DC Sodium Chloride 1,000 ml @ 150 mls/hr Q6H40M IV Last administered on 04/25/19at 19:38; Start 04/25/19 at 18:00; Stop 04/26/19 at 10:49; Status DC Fentanyl Citrate (Fentanyl 2ml Vial) 50 mcg PRN Q2HR PRN IV PAIN Last administered on 04/25/19at 21:24; Start 04/25/19 at 17:30; Stop 04/26/19 at 01:39; Status DC Acetaminophen/ Codeine Phosphate (Tylenol #3) 1 tab PRN Q6HRS PRN PO MODERATE PAIN; Start 04/25/19 at 17:30 Ondansetron HCl (Zofran) 4 mg PRN Q6HRS PRN IV NAUSEA/VOMITING; Start 04/25/19 at 17:30; Stop 04/26/19 at 01:39; Status DC Labetalol HCl (Normodyne Iv Push) 10 mg PRN Q2HR PRN IVP HYPERTENSION; Start 04/25/19 at 17:30 Diphenhydramine HCl (Benadryl) 25 mg PRN QHS PRN IVP sleep; Start 04/25/19 at 17:30 Pantoprazole Sodium (PROTONIX VIAL for IV PUSH) 40 mg DAILYAC IVP Last administered on 04/29/19at 05:48; Start 04/26/19 at 07:30; Stop 04/29/19 at 08:52; Status DC Tamsulosin HCl (Flomax) 0.8 mg DAILY PO Last administered on 04/29/19at 08:38; Start 04/26/19 at 09:00 Propofol 20 ml @ As Directed STK-MED ONCE IV ; Start 04/25/19 at 23:25; Stop 04/25/19 at 23:26; Status DC Lidocaine HCl (Lidocaine Pf 2% Vial) 5 ml STK-MED ONCE .ROUTE ; Start 04/25/19 at 23:25; Stop 04/25/19 at 23:26; Status DC Fentanyl Citrate (Fentanyl 2ml Vial) 100 mcg STK-MED ONCE .ROUTE ; Start 04/25/19 at 23:26; Stop 04/25/19 at 23:26; Status DC Succinylcholine Chloride (Anectine) 200 mg STK-MED ONCE .ROUTE ; Start 04/25/19 at 23:26; Stop 04/25/19 at 23:26; Status DC Rocuronium [place] (Zemuron) 50 mg STK-MED ONCE .ROUTE ; Start 04/25/19 at 23:26; Stop 04/25/19 at 23:26; Status DC Ondansetron HCl (Zofran) 4 mg PRN Q6HRS PRN IV NAUSEA/VOMITING; Start 04/25/19 at 23:45; Stop 04/26/19 at 23:44; Status DC Fentanyl Citrate (Fentanyl 2ml Vial) 25 mcg PRN Q5MIN PRN IV MILD PAIN 1-3; Start 04/25/19 at 23:45; Stop 04/26/19 at 23:44; Status DC Fentanyl Citrate (Fentanyl 2ml Vial) 50 mcg PRN Q5MIN PRN IV MODERATE TO SEVERE PAIN Last administered on 04/26/19at 02:06; Start 04/25/19 at 23:45; Stop 04/26/19 at 23:44; Status DC Morphine Sulfate (Morphine Sulfate) 1 mg PRN Q10MIN PRN IV SEVERE PAIN 7-10; Start 04/25/19 at 23:45; Stop 04/26/19 at 23:44; Status DC Ringer's Solution 1,000 ml @ 30 mls/hr Q24H IV ; Start 04/25/19 at 23:35; Stop 04/26/19 at 11:34; Status DC Hydromorphone HCl (Dilaudid) 0.5 mg PRN Q10MIN PRN IV SEV PAIN, Second choice; Start 04/25/19 at 23:45; Stop 04/26/19 at 23:44; Status DC Prochlorperazine Edisylate (Compazine) 5 mg PACU PRN PRN IV NAUSEA, MRX1; Star t 04/25/19 at 23:45; Stop 04/26/19 at 23:44; Status DC Bupivacaine HCl (Sensorcaine Mpf 0.5%) 30 ml STK-MED ONCE .ROUTE Last ad ministered on 04/26/19at 00:52; Start 04/25/19 at 23:50; Stop 04/25/19 at 23:51; Status DC Ondansetron HCl (Zofran) 4 mg STK-MED ONCE .ROUTE ; Start 04/26/19 at 00:24; Stop 04/26/19 at 00:24; Status DC Dexamethasone Sodium Phosphate (Decadron) 4 mg STK-MED ONCE .ROUTE ; Start 04/26/19 at 00:24; Stop 04/26/19 at 00:24; Status DC Desflurane (Suprane) 30 ml STK-MED ONCE IH ; Start 04/26/19 at 00:24; Stop 04/26/19 at 00:24; Status DC Glycopyrrolate (Robinul) 1 mg STK-MED ONCE .ROUTE ; Start 04/26/19 at 00:33; Stop 04/26/19 at 00:33; Status DC Neostigmine Methylsulfate (Neostigmine Methylsulfate) 5 mg STK-MED ONCE .ROUTE ; Start 04/26/19 at 00:33; Stop 04/26/19 at 00:33; Status DC Ephedrine Sulfate (ePHEDrine PF IN SALINE SYRINGE) 50 mg STK-MED ONCE IV ; St art 04/26/19 at 00:41; Stop 04/26/19 at 00:41; Status DC Enoxaparin Sodium (Lovenox 40mg Syringe) 40 mg Q24H SQ ; Start 04/26/19 at 09:00; Stop 04/26/19 at 10:45; Status DC Sodium Chloride (Normal Saline Flush) 3 ml QSHIFT PRN IV AFTER MEDS AND BLOOD DRAWS; Start 04/26/19 at 01:30 Ringer's Solution 1,000 ml @ 100 mls/hr Q10H IV ; Start 04/26/19 at 01:28; Stop 04/26/19 at 10:49; Status DC Naloxone HCl (Narcan) 0.4 mg PRN Q2MIN PRN IV SEE INSTRUCTIONS; Start 04/26/19 at 01:30 Sodium Chloride 1,000 ml @ 25 mls/hr Q24H IV Last administered on 04/29/19at 05:39; Start 04/26/19 at 02:00; Stop 04/29/19 at 08:52; Status DC Morphine Sulfate 30 ml @ 0 mls/hr CONT PRN PRN IV PER PROTOCOL Last administered on 04/28/19at 07:39; Start 04/26/19 at 01:30; Stop 04/29/19 at 08:52; Status DC Ondansetron HCl (Zofran) 4 mg PRN Q6HRS PRN IV NAUESA, 1ST CHOICE; Start 04/26/19 at 01:30 Fentanyl Citrate (Fentanyl 2ml Vial) 100 mcg STK-MED ONCE .ROUTE ; Start 04/26/19 at 01:42; Stop 04/26/19 at 01:42; Status DC Enoxaparin Sodium (Lovenox 40mg Syringe) 40 mg Q24H SQ Last administered on 04/28/19at 22:02; Start 04/26/19 at 21:00 Potassium Chloride/Dextrose/ Sod Cl 1,000 ml @ 125 mls/hr Q8H IV Last administered on 04/27/19at 10:40; Start 04/26/19 at 11:00; Stop 04/27/19 at 14:10 ; Status DC Sodium Chloride ([place] Saline Nasal) 1 cj PRN DAILY PRN NS NASAL CONGESTION Last administered on 04/26/19at 14:24; Start 04/26/19 at 12:00 Dextrose/Sodium Chloride 1,000 ml @ 100 mls/hr Q10H IV Last administered on 04/28/19at 20:12; Start 04/27/19 at 14:15; Stop 04/29/19 at 08:52; Status DC Oxycodone/ Acetaminophen (Percocet 5/325) 1 tab PRN Q4HRS PRN PO PAIN; Start 04/29/19 at 09:00 Pantoprazole Sodium (Protonix) 40 mg DAILYAC PO ; Start 04/30/19 at 07:30 Docusate Sodium (Colace) 100 mg DAILY PO Last administered on 04/29/19at 09:44; Start 04/29/19 at 09:00 Active Scripts Active Reported Tamsulosin Hcl 0.4 Mg Cap.er.24h 0.8 Mg PO DAILY Vitals/I & O Vital Sign - Last 24 Hours 04/28/19 04/28/19 04/28/19 04/28/19 11:00 15:00 19:00 20:00 Temp 97.9 98.1 98.5 97.9 98.1 98.5 Pulse 75 86 84 Resp 14 16 18 B/P (MAP) 124/96 (105) 123/69 (87) 131/79 (96) Pulse Ox 95 96 92 O2 Delivery Room Air Room Air Room Air Room Air 04/28/19 04/29/19 04/29/19 04/29/19 23:00 03:00 07:00 08:00 Temp 98.5 98.1 98.3 98.5 98.1 98.3 Pulse 75 63 65 Resp 18 18 20 B/P (MAP) 139/81 (100) 142/83 (102) 141/88 (105) Pulse Ox 92 93 96 O2 Delivery Room Air Room Air Room Air Room Air Intake and Output 04/28/19 04/28/19 04/29/19 14:59 22:59 06:59 Intake Total 460 ml 450 ml 300 ml Output Total 30 ml Balance 460 ml 450 ml 270 ml MARIA T GUY MD Apr 29, 2019 10:48
[2019-04-29 11:00] VITALS: BP 134/79
[2019-04-29] MEDS ORDERED: POTASSIUM CHLORIDE 20 MEQ TABLET.ER. PO ONE (14:00)
[2019-04-29 15:00] VITALS: BP 126/73
[2019-04-29 19:45] VITALS: BP 113/77
[2019-04-29] MEDS: ENOXAPARIN 40 MG/0.4 ML SYRINGE. SQ SCH (21:42)
[2019-04-29 23:33] VITALS: BP 123/80
[2019-04-30 03:21] VITALS: BP 120/76
[2019-04-30 04:53] LABS: CALCIUM 8.9 mg/dL (8.5-10.1); CREATININE 0.9 mg/dL (0.7-1.3); GFR 87.6; POTASSIUM 3.6 mmol/L (3.5-5.1)
[2019-04-30 07:00] VITALS: BP 137/81
[2019-04-30] MEDS ORDERED: PANTOPRAZOLE 40 MG TABLET.DR. PO SCH (07:30)
[2019-04-30] MEDS: DOCUSATE SODIUM 100 MG CAPSULE. PO SCH (07:58)
[2019-04-30] MEDS: TAMSULOSIN 0.4 MG CAP.ER.24H. PO SCH (07:59)
[2019-04-30] MEDS ORDERED: POTASSIUM CHLORIDE 20 MEQ TABLET.ER. PO SCH (08:00)
--- NOTE | 2019-04-30 10:22 | PDOC ---
PROGRESS NOTES Chief Complaint Chief Complaint discharge dx acute abd pain perforated duodenal ulcer s/p perf ulcer repair 2 mm nonobstructing calculus in inferior pole left kidney. No hydronephrosis. OPERATIVE NOTE. 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, CHART REVIEW, > 50% of time spent with exam, chart review, pt care coordination Vitals Vitals Vital Signs Date Time Temp Pulse Resp B/P (MAP) Pulse Ox O2 Delivery O2 Flow Rate FiO2 04/30/19 07:00 97.9 70 18 137/81 (99) 97 Room Air 97.9 Physical Exam General: Alert, Oriented X3, Cooperative, No acute distress Heart: Regular rate, Normal S1, Normal S2 Lungs: Clear, Other (lmiited vol dull bases, ) Abdomen: Normal bowel sounds, Soft, Other (incision c/d/i, no erythema) Extremities: No clubbing, No cyanosis, Normal pulses Skin: No rashes, No breakdown Labs LABS Laboratory Tests Test 04/30/19 03:30 Sodium Level 137 mmol/L (136-145) Potassium Level 3.6 mmol/L (3.5-5.1) Chloride Level 101 mmol/L (98-107) Carbon Dioxide Level 27 mmol/L (21-32) Anion Gap 9 (6-14) Blood Urea Nitrogen 18 mg/dL (8-26) Creatinine 0.9 mg/dL (0.7-1.3) Estimated GFR (Cockcroft-Gault) 87.6 Glucose Level 96 mg/dL (70-99) Calcium Level 8.9 mg/dL (8.5-10.1) Assessment and Plan Assessmemt and Plan Problems Medical Problems: (1) Perforated intestine Status: Acute (2) Pneumoperitoneum Status: Acute Comment Review of Relevant I have reviewed the following items nirmal (where applicable) has been applied. Labs Laboratory Tests Test 04/29/19 05:00 04/30/19 03:30 White Blood Count 6.0 x10^3/uL (4.0-11.0) Red Blood Count 4.25 x10^6/uL (4.30-5.70) Hemoglobin 14.0 g/dL (13.0-17.5) Hematocrit 41.5 % (39.0-53.0) Mean Corpuscular Volume 98 fL (79-100) Mean Corpuscular Hemoglobin 33 pg (25-35) Mean Corpuscular Hemoglobin Concent 34 g/dL (31-37) Red Cell Distribution Width 13.0 % (11.5-14.5) Platelet Count 238 x10^3/uL (140-400) Neutrophils (%) (Auto) 65 % (31-73) Lymphocytes (%) (Auto) 20 % (24-48) Monocytes (%) (Auto) 10 % (0-9) Eosinophils (%) (Auto) 4 % (0-3) Basophils (%) (Auto) 1 % (0-3) Neutrophils # (Auto) 3.9 x10^3/uL (1.8-7.7) Lymphocytes # (Auto) 1.2 x10^3/uL (1.0-4.8) Monocytes # (Auto) 0.6 x10^3/uL (0.0-1.1) Eosinophils # (Auto) 0.3 x10^3/uL (0.0-0.7) Basophils # (Auto) 0.0 x10^3/uL (0.0-0.2) Sodium Level 136 mmol/L (136-145) 137 mmol/L (136-145) Potassium Level 3.3 mmol/L (3.5-5.1) 3.6 mmol/L (3.5-5.1) Chloride Level 101 mmol/L (98-107) 101 mmol/L (98-107) Carbon Dioxide Level 28 mmol/L (21-32) 27 mmol/L (21-32) Anion Gap 7 (6-14) 9 (6-14) Blood Urea Nitrogen 11 mg/dL (8-26) 18 mg/dL (8-26) Creatinine 0.9 mg/dL (0.7-1.3) 0.9 mg/dL (0.7-1.3) Estimated GFR (Cockcroft-Gault) 87.6 87.6 BUN/Creatinine Ratio 12 (6-20) Glucose Level 93 mg/dL (70-99) 96 mg/dL (70-99) Calcium Level 8.6 mg/dL (8.5-10.1) 8.9 mg/dL (8.5-10.1) Total Bilirubin 0.6 mg/dL (0.2-1.0) Aspartate Amino Transf (AST/SGOT) 16 U/L (15-37) Alanine Aminotransferase (ALT/SGPT) 23 U/L (16-63) Alkaline Phosphatase 60 U/L (46-116) Total Protein 7.3 g/dL (6.4-8.2) Albumin 2.7 g/dL (3.4-5.0) Albumin/Globulin Ratio 0.6 (1.0-1.7) Laboratory Tests Test 04/30/19 03:30 Sodium Level 137 mmol/L (136-145) Potassium Level 3.6 mmol/L (3.5-5.1) Chloride Level 101 mmol/L (98-107) Carbon Dioxide Level 27 mmol/L (21-32) Anion Gap 9 (6-14) Blood Urea Nitrogen 18 mg/dL (8-26) Creatinine 0.9 mg/dL (0.7-1.3) Estimated GFR (Cockcroft-Gault) 87.6 Glucose Level 96 mg/dL (70-99) Calcium Level 8.9 mg/dL (8.5-10.1) Medications Current Medications Sodium Chloride 1,000 ml @ 1,000 mls/hr Q1H IV Last administered on 04/25/19at 15:27; Start 04/25/19 at 14:49; Stop 04/25/19 at 15:48; Status DC Fentanyl Citrate (Fentanyl 2ml Vial) 50 mcg 1X ONCE IV Last administered on 04/25/19 15:27; Start 04/25/19 at 15:00; Stop 04/25/19 at 15:01; Status DC Ondansetron HCl (Zofran) 4 mg 1X ONCE IV Last administered on 04/25/19at 15:27; Start 04/25/19 at 15:00; Stop 04/25/19 at 15:01; Status DC Iohexol (Omnipaque 300 Mg/ml) 75 ml 1X ONCE IV Last administered on 04/25/19at 16:09; Start 04/25/19 at 15:45; Stop 04/25/19 at 15:46; Status DC Info (CONTRAST GIVEN -- Rx MONITORING) 1 each PRN DAILY PRN MC SEE COMMENTS; Start 04/25/19 at 15:45; Stop 04/27/19 at 15:44; Status DC Pantoprazole Sodium (PROTONIX VIAL for IV PUSH) 80 mg 1X ONCE IVP Last administered on 04/25/19at 17:19; Start 04/25/19 at 17:00; Stop 04/25/19 at 17:01; Status DC Sodium Chloride 1,000 ml @ 1,000 mls/hr 1X ONCE IV Last administered on 04/25/19 17:19; Start 04/25/19 at 17:00; Stop 04/25/19 at 17:59; Status DC Piperacillin Sod/ Tazobactam Sod 3.375 gm/Sodium Chloride 50 ml @ 100 mls/hr 1X ONCE IV Last administered on 04/25/19at 17:19; Start 04/25/19 at 17:00; Stop 04/25/19 at 17:29; Status DC Fentanyl Citrate (Fentanyl 2ml Vial) 50 mcg 1X ONCE IV Last administered on 04/25/19at 17:19; Start 04/25/19 at 17:30; Stop 04/25/19 at 17:31; Status DC Sodium Chloride 1,000 ml @ 150 mls/hr Q6H40M IV Last administered on 04/25/19at 19:38; Start 04/25/19 at 18:00; Stop 04/26/19 at 10:49; Status DC Fentanyl Citrate (Fentanyl 2ml Vial) 50 mcg PRN Q2HR PRN IV PAIN Last administered on 04/25/19at 21:24; Start 04/25/19 at 17:30; Stop 04/26/19 at 01:39; Status DC Acetaminophen/ Codeine Phosphate (Tylenol #3) 1 tab PRN Q6HRS PRN PO MODERATE PAIN; Start 04/25/19 at 17:30 Ondansetron HCl (Zofran) 4 mg PRN Q6HRS PRN IV NAUSEA/VOMITING; Start 04/25/19 at 17:30; Stop 04/26/19 at 01:39; Status DC Labetalol HCl (Normodyne Iv Push) 10 mg PRN Q2HR PRN IVP HYPERTENSION; Start at 17:30 Diphenhydramine HCl (Benadryl) 25 mg PRN QHS PRN IVP sleep; Start 04/25/19 at 17:30 Pantoprazole Sodium (PROTONIX VIAL for IV PUSH) 40 mg DAILYAC IVP Last administered on 04/29/19at 05:48; Start 04/26/19 at 07:30; Stop 04/29/19 at 08:52; Status DC Tamsulosin HCl (Flomax) 0.8 mg DAILY PO Last administered on 04/30/19at 07:59; Start 04/26/19 at 09:00 Propofol 20 ml @ As Directed STK-MED ONCE IV ; Start 04/25/19 at 23:25; Stop 04/25/19 at 23:26; Status DC Lidocaine HCl (Lidocaine Pf 2% Vial) 5 ml STK-MED ONCE .ROUTE ; Start 04/25/19 at 23:25; Stop 04/25/19 at 23:26; Status DC Fentanyl Citrate (Fentanyl 2ml Vial) 100 mcg STK-MED ONCE .ROUTE ; Start 04/25/19 at 23:26; Stop 04/25/19 at 23:26; Status DC Succinylcholine Chloride (Anectine) 200 mg STK-MED ONCE .ROUTE ; Start 04/25/19 at 23:26; Stop 04/25/19 at 23:26; Status DC Rocuronium [place] (Zemuron) 50 mg STK-MED ONCE .ROUTE ; Start 04/25/19 at 23:26; Stop 04/25/19 at 23:26; Status DC Ondansetron HCl (Zofran) 4 mg PRN Q6HRS PRN IV NAUSEA/VOMITING; Start 04/25/19 at 23:45; Stop 04/26/19 at 23:44; Status DC Fentanyl Citrate (Fentanyl 2ml Vial) 25 mcg PRN Q5MIN PRN IV MILD PAIN 1-3; Start 04/25/19 at 23:45; Stop 04/26/19 at 23:44; Status DC Fentanyl Citrate (Fentanyl 2ml Vial) 50 mcg PRN Q5MIN PRN IV MODERATE TO SEVERE PAIN Last administered on 04/26/19at 02:06; Start 04/25/19 at 23:45; Stop 04/26/19 at 23:44; Status DC Morphine Sulfate (Morphine Sulfate) 1 mg PRN Q10MIN PRN IV SEVERE PAIN 7-10; Start 04/25/19 at 23:45; Stop 04/26/19 at 23:44; Status DC Ringer's Solution 1,000 ml @ 30 mls/hr Q24H IV ; Start 04/25/19 at 23:35; Stop 04/26/19 at 11:34; Status DC Hydromorphone HCl (Dilaudid) 0.5 mg PRN Q10MIN PRN IV SEV PAIN, Second choice; Start 04/25/19 at 23:45; Stop 04/26/19 at 23:44; Status DC Prochlorperazine Edisylate (Compazine) 5 mg PACU PRN PRN IV NAUSEA, MRX1; Start 04/25/19 at 23:45; Stop 04/26/19 at 23:44; Status DC Bupivacaine HCl (Sensorcaine Mpf 0.5%) 30 ml STK-MED ONCE .ROUTE Last administered on 04/26/19at 00:52; Start 04/25/19 at 23:50; Stop 04/25/19 at 23:51; Status DC Ondansetron HCl (Zofran) 4 mg STK-MED ONCE .ROUTE ; Start 04/26/19 at 00:24; Stop 04/26/19 at 00:24; Status DC Dexamethasone Sodium Phosphate (Decadron) 4 mg STK-MED ONCE .ROUTE ; Start 04/26/19 at 00:24; Stop 04/26/19 at 00:24; Status DC Desflurane (Suprane) 30 ml STK-MED ONCE IH ; Start 04/26/19 at 00:24; Stop 04/26/19 at 00:24; Status DC Glycopyrrolate (Robinul) 1 mg STK-MED ONCE .ROUTE ; Start 04/26/19 at 00:33; Stop 04/26/19 at 00:33; Status DC Neostigmine Methylsulfate (Neostigmine Methylsulfate) 5 mg STK-MED ONCE .ROUTE ; Start 04/26/19 at 00:33; Stop 04/26/19 at 00:33; Status DC Ephedrine Sulfate (ePHEDrine PF IN SALINE SYRINGE) 50 mg STK-MED ONCE IV ; Start 04/26/19 at 00:41; Stop 04/26/19 at 00:41; Status DC Enoxaparin Sodium (Lovenox 40mg Syringe) 40 mg Q24H SQ ; Start 04/26/19 at 09:00; Stop 04/26/19 at 10:45; Status DC Sodium Chloride (Normal Saline Flush) 3 ml QSHIFT PRN IV AFTER MEDS AND BLOOD DRAWS; Start 04/26/19 at 01:30 Ringer's Solution 1,000 ml @ 100 mls/hr Q10H IV ; Start 04/26/19 at 01:28; Stop 04/26/19 at 10:49; Status DC Naloxone HCl (Narcan) 0.4 mg PRN Q2MIN PRN IV SEE INSTRUCTIONS; Start 04/26/19 at 01:30 Sodium Chloride 1,000 ml @ 25 mls/hr Q24H IV Last administered on 04/29/19at 05:39; Start 04/26/19 at 02:00; Stop 04/29/19 at 08:52; Status DC Morphine Sulfate 30 ml @ 0 mls/hr CONT PRN PRN IV PER PROTOCOL Last administered on 04/28/19at 07:39; Start 04/26/19 at 01:30; Stop 04/29/19 at 08:52; Status DC Ondansetron HCl (Zofran) 4 mg PRN Q6HRS PRN IV NAUESA, 1ST CHOICE; Start 04/26/19 at 01:30 Fentanyl Citrate (Fentanyl 2ml Vial) 100 mcg STK-MED ONCE .ROUTE ; Start 04/26/19 at 01:42; Stop 04/26/19 at 01:42; Status DC Enoxaparin Sodium (Lovenox 40mg Syringe) 40 mg Q24H SQ Last administered on 04/29/19at 21:42; Start 04/26/19 at 21:00 Potassium Chloride/Dextrose/ Sod Cl 1,000 ml @ 125 mls/hr Q8H IV Last administered on 04/27/19at 10:40; Start 04/26/19 at 11:00; Stop 04/27/19 at 14:10; Status DC Sodium Chloride ([place] Saline Nasal) 1 cj PRN DAILY PRN NS NASAL CONGESTION Last administered on 04/26/19at 14:24; Start 04/26/19 at 12:00 Dextrose/Sodium Chloride 1,000 ml @ 100 mls/hr Q10H IV Last administered on 04/28/19at 20:12; Start 04/27/19 at 14:15; Stop 04/29/19 at 08:52; Status DC Oxycodone/ Acetaminophen (Percocet 5/325) 1 tab PRN Q4HRS PRN PO PAIN; Start 04/29/19 at 09:00 Pantoprazole Sodium (Protonix) 40 mg DAILYAC PO Last administered on 04/30/19at 06:23; Start 04/30/19 at 07:30 Docusate Sodium (Colace) 100 mg DAILY PO Last administered on 04/30/19at 07:59; Start 04/29/19 at 09:00 Potassium Chloride (Klor-Con) 40 meq 1X ONCE PO Last administered on 04/29/19at 14:17; Start 04/29/19 at 14:00; Stop 04/29/19 at 14:01; Status DC Potassium Chloride (Klor-Con) 20 meq DAILYWBKFT PO Last administered on 04/30/19at 07:59; Start 04/30/19 at 08:00 Active Scripts Active Reported Tamsulosin Hcl 0.4 Mg Cap.er.24h 0.8 Mg PO DAILY Vitals/I & O Vital Sign - Last 24 Hours 04/29/19 04/29/19 04/29/19 04/29/19 11:00 15:00 19:45 20:00 Temp 98.1 97.9 98.8 98.1 97.9 98.8 Pulse 74 82 91 Resp 20 18 16 B/P (MAP) 134/79 (97) 126/73 (90) 113/77 (89) Pulse Ox 97 98 94 O2 Delivery Room Air Room Air Room Air Room Air 04/29/19 04/30/19 04/30/19 23:33 03:21 07:00 Temp 98.7 98.6 97.9 98.7 98.6 97.9 Pulse 73 70 70 Resp 18 18 18 B/P (MAP) 123/80 (94) 120/76 (91) 137/81 (99) Pulse Ox 97 98 97 O2 Delivery Room Air Room Air Room Air Intake and Output 04/29/19 04/29/19 04/30/19 14:59 22:59 06:59 Intake Total 220 ml 540 ml Balance 220 ml 540 ml MARIA T GUY MD Apr 30, 2019 10:22
[2019-04-30 11:00] VITALS: BP 115/77
--- NOTE | 2019-04-30 12:28 | PDOC3 ---
Discharge Summary Date of Admission: Apr 25, 2019 Date of Discharge: Apr 30, 2019 Follow-Up: By telephone Admitting Diagnosis comment: Chief Complaint Chief Complaint discharge dx acute abd pain perforated duodenal ulcer s/p perf ulcer repair 2 mm nonobstructing calculus in inferior pole left kidney. No hydronephrosis. OPERATIVE NOTE. 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, CHART REVIEW, d/c planning > 50% of time spent with exam, chart review, pt care coordination Vitals Vitals Vital Signs Date Time Temp Pulse Resp B/P (MAP) Pulse Ox O2 Delivery O2 Flow Rate FiO2 04/30/19 07:00 97.9 70 18 137/81 (99) 97 Room Air 97.9 Physical Exam General: Alert, Oriented X3, Cooperative, No acute distress Heart: Regular rate, Normal S1, Normal S2 Lungs: Clear, Abdomen: Normal bowel sounds, Soft, Other (incision c/d/i, no erythema) Extremities: No clubbing, No cyanosis, Normal pulses Skin: No rashes, No breakdown FINAL DIAGNOSIS Problems Medical Problems: (1) Perforated intestine Status: Acute (2) Pneumoperitoneum Status: Acute Brief Hospital Course Mr. Murray is a 53 old [sex] who presented with [ perf bowel] CONDITION AT DISCHARGE: Improved Discharge Medications Current Medications Sodium Chloride 1,000 ml @ 1,000 mls/hr Q1H IV Last administered on 04/25/19at 15:27; Start 04/25/19 at 14:49; Stop 04/25/19 at 15:48; Status DC Fentanyl Citrate (Fentanyl 2ml Vial) 50 mcg 1X ONCE IV Last administered on 04/25/19at 15:27; Start 04/25/19 at 15:00; Stop 04/25/19 at 15:01; Status DC Ondansetron HCl (Zofran) 4 mg 1X ONCE IV Last administered on 04/25/19at 15:27; Start 04/25/19 at 15:00; Stop 04/25/19 at 15:01; Status DC Iohexol (Omnipaque 300 Mg/ml) 75 ml 1X ONCE IV Last administered on 04/25/19at 16:09; Start 04/25/19 at 15:45; Stop 04/25/19 at 15:46; Status DC Info (CONTRAST GIVEN -- Rx MONITORING) 1 each PRN DAILY PRN MC SEE COMMENTS; Start 04/25/19 at 15:45; Stop 04/27/19 at 15:44; Status DC Pantoprazole Sodium (PROTONIX VIAL for IV PUSH) 80 mg 1X ONCE IVP Last administered on 04/25/19at 17:19; Start 04/25/19 at 17:00; Stop 04/25/19 at 17:01; Status DC Sodium Chloride 1,000 ml @ 1,000 mls/hr 1X ONCE IV Last administered on 04/25/19at 17:19; Start 04/25/19 at 17:00; Stop 04/25/19 at 17:59; Status DC Piperacillin Sod/ Tazobactam Sod 3.375 gm/Sodium Chloride 50 ml @ 100 mls/hr 1X ONCE IV Last administered on 04/25/19at 17:19; Start 04/25/19 at 17:00; Stop 04/25/19 at 17:29; Status DC Fentanyl Citrate (Fentanyl 2ml Vial) 50 mcg 1X ONCE IV Last administered on 04/25/19at 17:19; Start 04/25/19 at 17:30; Stop 04/25/19 at 17:31; Status DC Sodium Chloride 1,000 ml @ 150 mls/hr Q6H40M IV Last administered on 04/25/19at 19:38; Start 04/25/19 at 18:00; Stop 04/26/19 at 10:49; Status DC Fentanyl Citrate (Fentanyl 2ml Vial) 50 mcg PRN Q2HR PRN IV PAIN Last administered on 04/25/19at 21:24; Start 04/25/19 at 17:30; Stop 04/26/19 at 01:39; Status DC Acetaminophen/ Codeine Phosphate (Tylenol #3) 1 tab PRN Q6HRS PRN PO MODERATE PAIN; Start 04/25/19 at 17:30 Ondansetron HCl (Zofran) 4 mg PRN Q6HRS PRN IV NAUSEA/VOMITING; Start 04/25/19 at 17:30; Stop 04/26/19 at 01:39; Status DC Labetalol HCl (Normodyne Iv Push) 10 mg PRN Q2HR PRN IVP HYPERTENSION; Start 04/25/19 at 17:30 Diphenhydramine HCl (Benadryl) 25 mg PRN QHS PRN IVP sleep; Start 04/25/19 at 17:30 Pantoprazole Sodium (PROTONIX VIAL for IV PUSH) 40 mg DAILYAC IVP Last administered on 04/29/19at 05:48; Start 04/26/19 at 07:30; Stop 04/29/19 at 08:52; Status DC Tamsulosin HCl (Flomax) 0.8 mg DAILY PO Last administered on 04/30/19at 07:59; Start 04/26/19 at 09:00 Propofol 20 ml @ As Directed STK-MED ONCE IV ; Start 04/25/19 at 23:25; Stop 04/25/19 at 23:26; Status DC Lidocaine HCl (Lidocaine Pf 2% Vial) 5 ml STK-MED ONCE .ROUTE ; Start 04/25/19 a t 23:25; Stop 04/25/19 at 23:26; Status DC Fentanyl Citrate (Fentanyl 2ml Vial) 100 mcg STK-MED ONCE .ROUTE ; Start 04/25/19 at 23:26; Stop 04/25/19 at 23:26; Status DC Succinylcholine Chloride (Anectine) 200 mg STK-MED ONCE .ROUTE ; Start 04/25/19 at 23:26; Stop 04/25/19 at 23:26; Status DC Rocuronium [place] (Zemuron) 50 mg STK-MED ONCE .ROUTE ; Start 04/25/19 at 23:26; Stop 04/25/19 at 23:26; Status DC Ondansetron HCl (Zofran) 4 mg PRN Q6HRS PRN IV NAUSEA/VOMITING; Start 04/25/19 at 23:45; Stop 04/26/19 at 23:44; Status DC Fentanyl Citrate (Fentanyl 2ml Vial) 25 mcg PRN Q5MIN PRN IV MILD PAIN 1-3; Start 04/25/19 at 23:45; Stop 04/26/19 at 23:44; Status DC Fentanyl Citrate (Fentanyl 2ml Vial) 50 mcg PRN Q5MIN PRN IV MODERATE TO SEVERE PAIN Last administered on 04/26/19at 02:06; Start 04/25/19 at 23:45; Stop 04/26/19 at 23:44; Status DC Morphine Sulfate (Morphine Sulfate) 1 mg PRN Q10MIN PRN IV SEVERE PAIN 7-10; Start 04/25/19 at 23:45; Stop 04/26/19 at 23:44; Status DC Ringer's Solution 1,000 ml @ 30 mls/hr Q24H IV ; Start 04/25/19 at 23:35; Stop 04/26/19 at 11:34; Status DC Hydromorphone HCl (Dilaudid) 0.5 mg PRN Q10MIN PRN IV SEV PAIN, Second choice; Start 04/25/19 at 23:45; Stop 04/26/19 at 23:44; Status DC Prochlorperazine Edisylate (Compazine) 5 mg PACU PRN PRN IV NAUSEA, MRX1; Start 04/25/19 at 23:45; Stop 04/26/19 at 23:44; Status DC Bupivacaine HCl (Sensorcaine Mpf 0.5%) 30 ml STK-MED ONCE .ROUTE Last administered on 04/26/19at 00:52; Start 04/25/19 at 23:50; Stop 04/25/19 at 23:51; Status DC Ondansetron HCl (Zofran) 4 mg STK-MED ONCE .ROUTE ; Start 04/26/19 at 00:24; Stop 04/26/19 at 00:24; Status DC Dexamethasone Sodium Phosphate (Decadron) 4 mg STK-MED ONCE .ROUTE ; Start 04/26/19 at 00:24; Stop 04/26/19 at 00:24; Status DC Desflurane (Suprane) 30 ml STK-MED ONCE IH ; Start 04/26/19 at 00:24; Stop 04/26/19 at 00:24; Status DC Glycopyrrolate (Robinul) 1 mg STK-MED ONCE .ROUTE ; Start 04/26/19 at 00:33; Stop 04/26/19 at 00:33; Status DC Neostigmine Methylsulfate (Neostigmine Methylsulfate) 5 mg STK-MED ONCE .ROUTE ; Start 04/26/19 at 00:33; Stop 04/26/19 at 00:33; Status DC Ephedrine Sulfate (ePHEDrine PF IN SALINE SYRINGE) 50 mg STK-MED ONCE IV ; Start 04/26/19 at 00:41; Stop 04/26/19 at 00:41; Status DC Enoxaparin Sodium (Lovenox 40mg Syringe) 40 mg Q24H SQ ; Start 04/26/19 at 09:00; Stop 04/26/19 at 10:45; Status DC Sodium Chloride (Normal Saline Flush) 3 ml QSHIFT PRN IV AFTER MEDS AND BLOOD DRAWS; Start 04/26/19 at 01:30 Ringer's Solution 1,000 ml @ 100 mls/hr Q10H IV ; Start 04/26/19 at 01:28; Stop 04/26/19 at 10:49; Status DC Naloxone HCl (Narcan) 0.4 mg PRN Q2MIN PRN IV SEE INSTRUCTIONS; Start 04/26/19 at 01:30 Sodium Chloride 1,000 ml @ 25 mls/hr Q24H IV Last administered on 04/29/19at 05:39; Start 04/26/19 at 02:00; Stop 04/29/19 at 08:52; Status DC Morphine Sulfate 30 ml @ 0 mls/hr CONT PRN PRN IV PER PROTOCOL Last administered on 04/28/19at 07:39; Start 04/26/19 at 01:30; Stop 04/29/19 at 08:52; Status DC Ondansetron HCl (Zofran) 4 mg PRN Q6HRS PRN IV NAUESA, 1ST CHOICE; Start 04/26/19 at 01:30 Fentanyl Citrate (Fentanyl 2ml Vial) 100 mcg STK-MED ONCE .ROUTE ; Start 04/26/19 at 01:42; Stop 04/26/19 at 01:42; Status DC Enoxaparin Sodium (Lovenox 40mg Syringe) 40 mg Q24H SQ Last administered on 04/29/19at 21:42; Start 04/26/19 at 21:00 Potassium Chloride/Dextrose/ Sod Cl 1,000 ml @ 125 mls/hr Q8H IV Last administered on 04/27/19at 10:40; Start 04/26/19 at 11:00; Stop 04/27/19 at 14:10; Status DC Sodium Chloride ([place] Saline Nasal) 1 cj PRN DAILY PRN NS NASAL CONGESTION Last administered on 04/26/19at 14:24; Start 04/26/19 at 12:00 Dextrose/Sodium Chloride 1,000 ml @ 100 mls/hr Q10H IV Last administered on 04/28/19at 20:12; Start 04/27/19 at 14:15; Stop 04/29/19 at 08:52; Status DC Oxycodone/ Acetaminophen (Percocet 5/325) 1 tab PRN Q4HRS PRN PO PAIN; Start 04/29/19 at 09:00 Pantoprazole Sodium (Protonix) 40 mg DAILYAC PO Last administered on 04/30/19at 06:23; Start 04/30/19 at 07:30 Docusate Sodium (Colace) 100 mg DAILY PO Last administered on 04/30/19at 07:59; Start 04/29/19 at 09:00 Potassium Chloride (Klor-Con) 40 meq 1X ONCE PO Last administered on 04/29/19at 14:17; Start 04/29/19 at 14:00; Stop 04/29/19 at 14:01; Status DC Potassium Chloride (Klor-Con) 20 meq DAILYWBKFT PO Last administered on 04/30/19at 07:59; Start 04/30/19 at 08:00 Active Scripts Active Reported Tamsulosin Hcl 0.4 Mg Cap.er.24h 0.8 Mg PO DAILY Vital Signs Vital Signs Date Time Temp Pulse Resp B/P (MAP) Pulse Ox O2 Delivery O2 Flow Rate FiO2 04/30/19 11:00 98.3 80 16 115/77 (90) 97 Room Air 98.3 Labs Laboratory Tests Test 04/29/19 05:00 04/30/19 03:30 White Blood Count 6.0 x10^3/uL (4.0-11.0) Red Blood Count 4.25 x10^6/uL (4.30-5.70) Hemoglobin 14.0 g/dL (13.0-17.5) Hematocrit 41.5 % (39.0-53.0) Mean Corpuscular Volume 98 fL (79-100) Mean Corpuscular Hemoglobin 33 pg (25-35) Mean Corpuscular Hemoglobin Concent 34 g/dL (31-37) Red Cell Distribution Width 13.0 % (11.5-14.5) Platelet Count 238 x10^3/uL (140-400) Neutrophils (%) (Auto) 65 % (31-73) Lymphocytes (%) (Auto) 20 % (24-48) Monocytes (%) (Auto) 10 % (0-9) Eosinophils (%) (Auto) 4 % (0-3) Basophils (%) (Auto) 1 % (0-3) Neutrophils # (Auto) 3.9 x10^3/uL (1.8-7.7) Lymphocytes # (Auto) 1.2 x10^3/uL (1.0-4.8) Monocytes # (Auto) 0.6 x10^3/uL (0.0-1.1) Eosinophils # (Auto) 0.3 x10^3/uL (0.0-0.7) Basophils # (Auto) 0.0 x10^3/uL (0.0-0.2) Sodium Level 136 mmol/L (136-145) 137 mmol/L (136-145) Potassium Level 3.3 mmol/L (3.5-5.1) 3.6 mmol/L (3.5-5.1) Chloride Level 101 mmol/L (98-107) 101 mmol/L (98-107) Carbon Dioxide Level 28 mmol/L (21-32) 27 mmol/L (21-32) Anion Gap 7 (6-14) 9 (6-14) Blood Urea Nitrogen 11 mg/dL (8-26) 18 mg/dL (8-26) Creatinine 0.9 mg/dL (0.7-1.3) 0.9 mg/dL (0.7-1.3) Estimated GFR (Cockcroft-Gault) 87.6 87.6 BUN/Creatinine Ratio 12 (6-20) Glucose Level 93 mg/dL (70-99) 96 mg/dL (70-99) Calcium Level 8.6 mg/dL (8.5-10.1) 8.9 mg/dL (8.5-10.1) Total Bilirubin 0.6 mg/dL (0.2-1.0) Aspartate Amino Transf (AST/SGOT) 16 U/L (15-37) Alanine Aminotransferase (ALT/SGPT) 23 U/L (16-63) Alkaline Phosphatase 60 U/L (46-116) Total Protein 7.3 g/dL (6.4-8.2) Albumin 2.7 g/dL (3.4-5.0) Albumin/Globulin Ratio 0.6 (1.0-1.7) Laboratory Tests Test 04/30/19 03:30 Sodium Level 137 mmol/L (136-145) Potassium Level 3.6 mmol/L (3.5-5.1) Chloride Level 101 mmol/L (98-107) Carbon Dioxide Level 27 mmol/L (21-32) Anion Gap 9 (6-14) Blood Urea Nitrogen 18 mg/dL (8-26) Creatinine 0.9 mg/dL (0.7-1.3) Estimated GFR (Cockcroft-Gault) 87.6 Glucose Level 96 mg/dL (70-99) Calcium Level 8.9 mg/dL (8.5-10.1) Allergies Allergies Coded Allergies Type Severity Reaction Last Updated Verified No Known Drug Allergies 01/19/15 No Disposition/Orders: D/C to Home Patient Instructions d/c planning 37 min MARIA T GUY MD Apr 30, 2019 12:28
[2019-04-30] MEDS ORDERED: DOCU-109 PO (12:30)
[2019-04-30] MEDS ORDERED: PANT40TA77 PO (12:30)
--- NOTE | 2019-04-30 12:32 | DISCH ---
DISCHARGE INSTRUCTIONS Condition on Discharge Condition on Discharge: Stable Activity After Discharge Activity Instructions for Disc: Activity as tolerated, Avoid exertion Bathing Instructions: Shower-keep dressing dry, No Tub Bath until see Lifting Instructions after Dis: No heavy lifting, No pulling or pushing Driving Instructions after Dis: Do not drive Diet after Discharge Diet after Discharge: Regular Wound Incision Care Wound Care Equipment: Dressings Checks after Discharge Checks after discharge: Check blood press - daily Contacting the DRJess after DC Call your doctor for: If your condition worsens Treatment/Equipment after DC Adaptive Equipment Issued: None MARIA T GUY MD Apr 30, 2019 12:32
--- NOTE | 2019-04-30 12:57 | NUR ---
Discharge Note: NAVDEEP JORDAN Discharge instructions and discharge home medications reviewed with Patient and a copy given. All questions have been answered and understanding verbalized. The following instructions and handouts were given: Discharge and Follow Up Instructions, Including Prescriptions. Discontinued lines and drains: PIV removed, Catheter intact. Patient discharged to Home with Self-Care via Private Vehicle.
== END 2019-04-30 13:06 | disposition home or self-care (01) | DRG 329 ==
LOC: ER 14:14 → ED HOLD 18:27 → 6 SOUTH 20:15 → 4 NORTH 04-26 02:05
PROVIDERS: ADMIT Internal Medicine; ATTEND Internal Medicine
PROC: 0WJG4ZZ Inspection of Peritoneal Cavity, Percutaneous Endoscopic Approach (ICD-10-PCS; 2019-04-26)
PROC: 0DU907Z Supplement Duodenum with Autologous Tissue Substitute, Open Approach (ICD-10-PCS; principal; 2019-04-26 00:04)
DX: K26.5 Chronic or unspecified duodenal ulcer with perforation (principal); R65.11 Systemic inflammatory response syndrome (SIRS) of non-infectious origin with acute organ dysfunction; N20.0 Calculus of kidney; M25.512 Pain in left shoulder; G89.29 Other chronic pain; K66.8 Other specified disorders of peritoneum; N40.0 Benign prostatic hyperplasia without lower urinary tract symptoms; Z53.31 Laparoscopic surgical procedure converted to open procedure; Z87.442 Personal history of urinary calculi; K57.90 Diverticulosis of intestine, part unspecified, without perforation or abscess without bleeding
CPT/HCPCS: 36415; 74177; 80048; 80053; 81001; 82550; 83690; 84484; 85025; 85610; 93005; 96365; 96375; 96376; A7015; C9113; J0171; J0330; J1100; J1650; J2001; J2405; J2543; J2704; J2710; J3010; J3490; J7030; J7120; Q9967; 97110; 97116; 97530; 97535; 99291-25; G0378

== ENCOUNTER → 2020-09-09 | Outpatient (CLI) | payer BC ==
[~2020-09-09] MED LIST changes: +DOCU-109 PO; +HYDR-2759 PO; +PANT40TA77 PO
== END ==
LOC: LAB 09:53
PROVIDERS: ATTEND Surgery
DX: Z01.812 Encounter for preprocedural laboratory examination (principal); R43.9 Unspecified disturbances of smell and taste; K43.2 Incisional hernia without obstruction or gangrene; K43.9 Ventral hernia without obstruction or gangrene; Z20.828 Contact with and (suspected) exposure to other viral communicable diseases
CPT/HCPCS: U0003

== ENCOUNTER 2020-09-14 08:01 | Observation (INO) | payer BC ==
[~2020-09-14] VITALS: Ht 171.4 cm; Wt 85.0 kg
[2020-09-14] VITALS (8 sets, daily range): BP systolic 128–156; BP diastolic 68–87
[~2020-09-14 08:01] MED LIST changes: -HYDR-2759 PO
[2020-09-14] MEDS ORDERED: SUCCINYLCHOLINE 200 MG/10 ML VIAL. ONE (08:09)
[2020-09-14] MEDS ORDERED: DEXAMETHASONE SOD PHOS 4 MG/ML VIAL ONE ×2 (08:09→09:31)
[2020-09-14] MEDS ORDERED: ONDANSETRON PF 4 MG/2 ML VIAL. ONE (08:09)
[2020-09-14] MEDS ORDERED: PROPOFOL 10 MG/ML (20ML) VIAL. IV ONE (08:09)
[2020-09-14] MEDS ORDERED: LIDOCAINE 2% PF 5 ML VIAL. ONE (08:09)
[2020-09-14] MEDS ORDERED: ROCURONIUM 50 MG/5 ML VIAL. ONE (08:09)
[2020-09-14] MEDS ORDERED: MIDAZOLAM HCL/PF 2 MG/2 ML VIAL. ONE (08:09)
[2020-09-14] MEDS ORDERED: fentaNYL PF VIAL 100 MCG/2 ML VIAL ONE ×3 (08:11→11:14)
[2020-09-14] MEDS: IV RINGERS,LACTATED 1000ML 1,000 ML IV SCH ×4 (08:41→21:15)
[2020-09-14] MEDS ORDERED: LIDOCAINE 1% PF 2 ML VIAL. ID PRN (08:45)
[2020-09-14] MEDS ORDERED: IV RINGERS,LACTATED 1000ML 1,000 ML IV SCH (08:45)
[2020-09-14] MEDS ORDERED: fentaNYL PF VIAL 100 MCG/2 ML VIAL IV PRN (08:45)
[2020-09-14] MEDS ORDERED: ONDANSETRON PF 4 MG/2 ML VIAL. IV PRN (08:45)
[2020-09-14] MEDS ORDERED: PROCHLORPERAZINE 10 MG/2 ML VIAL. IV PRN (08:45)
[2020-09-14] MEDS ORDERED: HYDROmorphone 2 MG/ML VIAL IV PRN (08:45)
--- NOTE | 2020-09-14 09:10 | PDOC ---
SURGICAL PROGRESS NOTE DATE: 09/14/20 TIME: 09:08 Subjective Pre-Op Note 54 yo M with incisional hernia. TO OR for incisional hernia repair. R/R/B/A d/w pt and pt's family. Risks, including, but not limited to: bleeding, infection, damage to surrounding structures, risk of anesthesia, risk of recurrence. They appear to understand, their questions are answered and they elect to proceed. Office note H&P reviewed and unchanged. Site of hernia marked with pt preop. Vital Signs Vital Signs Date Time Temp Pulse Resp B/P (MAP) Pulse Ox O2 Delivery O2 Flow Rate FiO2 09/14/20 08:30 97.1 67 18 131/85 96 Room Air 97.1 Justicifation of Admission Dx: Justifications for Admission: Justification of Admission Dx: N/A MARCELINA VINCENT MD Sep 14, 2020 09:10
[2020-09-14] MEDS ORDERED: GLYCOPYRROLATE 1 MG/5 ML VIAL. ONE (09:56)
[2020-09-14] MEDS ORDERED: BUPIVACAINE-EPI 0.5%-1:200000 MPF 30 ML VIAL. INJ ONE (10:00)
[2020-09-14] MEDS ORDERED: NEOSTIGMINE METHYLSULFATE 5 MG/5 ML SYRINGE. ONE (10:01)
[2020-09-14] MEDS ORDERED: SEVOFLURANE 31 TO 60 MINUTES. IH ONE (10:03)
[2020-09-14] MEDS ORDERED: SEVOFLURANE 61 TO 120 MINUTES. IH ONE (10:17)
[2020-09-14] MEDS ORDERED: HYDROcodone/APAP 5/325MG 1 TAB TABLET PO PRN (10:45)
[2020-09-14] MEDS ORDERED: 0.9 % SODIUM CHLORIDE 10 ML DISP.SYRIN. IV PRN (10:45)
[2020-09-14] MEDS ORDERED: ONDANSETRON PF 4 MG/2 ML VIAL. IVP PRN (10:45)
[2020-09-14] MEDS ORDERED: NALOXONE 0.4 MG/ML VIAL. IV PRN (10:45)
[2020-09-14] MEDS ORDERED: MORPHINE SULFATE 2 MG/ML VIAL. IV PRN (10:45)
--- NOTE | 2020-09-14 10:51 | PDOC4 ---
OPERATIVE NOTE Date: Date: Sep 13, 2020 Pre-Op Diagnosis: Incisional hernia Post-Op Diagnosis: same Procedure Performed: Incisional hernia repair Surgeon: Viral Vincent Anesthesia Type: GETA plus local Blood Loss: 50 Specimans Obtained: hernia sac Findings: multiple hernia defects of anterior incision, poor quality fascia, some prominent colon, normal and viable viscera otherwise Complications: none Operative Note: After obtaining informed consent, patient was taken to OR, induced under GETA and prepped in the usual fashion. Previous scar excised with cautery. Subcutaneous tissues divided with cautery. Fascia encountered and noted to have multiple hernia defects. These were identified and combined. Hernia sac excised and sent to pathology. Omental adhesions cleared off peritoneal scar. Viscera was uninjured. Intact fascia reapproximated with 0 looped PDS in continuous fashion. Subcutaneous tissues repaired with 3 0 vicryl and 4 0 monocryl. Dressing placed. Patient tolerated procedure well and sent to PACU in stable condition. All counts correct. Wound class is 1. MARCELINA VINCENT MD Sep 14, 2020 10:50
--- NOTE | 2020-09-14 10:57 | RAD ---
EXAM: Abdomen, single view. HISTORY: Hernia repair. Postoperative evaluation. COMPARISON: 04/25/2019. FINDINGS: A frontal view of the abdomen is obtained. There is gas within the stomach and there are pr ominent air-filled loops of bowel within the mid lower abdomen primarily to the right of midline. The re is gas and stool within the colon. No radiodense foreign body is seen. IMPRESSION: Prominent loops of air-filled bowel within the mid lower abdomen primarily to the right o f midline. This may be due to a component of postoperative ileus. No foreign body is seen. Electronically signed by: Eneida Cazares MD (09/14/2020 10:55 AM) [id number]
[2020-09-14] MEDS: fentaNYL PF VIAL 100 MCG/2 ML VIAL IV PRN ×2 (11:24→11:41)
[2020-09-14] MEDS ORDERED: MORPHINE SULFATE 2 MG/ML VIAL. ONE (12:15)
[2020-09-14] MEDS: MORPHINE SULFATE 2 MG/ML VIAL. IV PRN ×2 (12:18→12:33)
--- NOTE | 2020-09-14 15:32 | NUR ---
Report received from Jolynn. Patient had a Hernia repair. Patient had a urine output of 300 druing surgery but hasn't voided yet. patient had a blood loss of 50 mL. Patient says his pain stays at 7 but "it gets better" with medication. patient is afebrile, O2 was 89-91% after surgery but went up to 98% with 2L of O2, BP was 134/76 and HR 60.
--- NOTE | 2020-09-14 16:00 | NUR ---
ambulated around the nurse's station and tolerated well. ambulated to bathroom and voided. did not measure; "voided a lot" up in recliner. rating his pain 3-4 at this time.
[2020-09-14] MEDS: TAMSULOSIN 0.4 MG CAP.ER.24H. PO SCH (17:23)
[2020-09-14] MEDS: PANTOPRAZOLE 40 MG TABLET.DR. PO SCH (17:23)
[2020-09-14] MEDS ORDERED: ENOXAPARIN 40 MG/0.4 ML SYRINGE. SQ SCH (21:00)
[2020-09-14] MEDS: FAMOTIDINE 20 MG TABLET. PO SCH (21:13)
[2020-09-14] MEDS: DOCUSATE SODIUM 100 MG CAPSULE. PO SCH (21:13)
[2020-09-14] MEDS: IV NORMAL SALINE 1000ML BAG 1,000 ML IV SCH (21:15)
[2020-09-15 03:17] VITALS: BP 135/62
[2020-09-15] MEDS: IV RINGERS,LACTATED 1000ML 1,000 ML IV SCH ×2 (04:45→06:45)
[2020-09-15] MEDS ORDERED: ENOXAPARIN 40 MG/0.4 ML SYRINGE. SQ SCH (06:00)
[2020-09-15] MEDS: PANTOPRAZOLE 40 MG TABLET.DR. PO SCH (06:19)
[2020-09-15 06:38] VITALS: BP 136/58
[2020-09-15] MEDS: FAMOTIDINE 20 MG TABLET. PO SCH (08:06)
[2020-09-15] MEDS: TAMSULOSIN 0.4 MG CAP.ER.24H. PO SCH (08:06)
[2020-09-15] MEDS: DOCUSATE SODIUM 100 MG CAPSULE. PO SCH (08:06)
[2020-09-15] MEDS ORDERED: DOCUSATE SODIUM 100 MG CAPSULE. PO SCH (09:00)
[2020-09-15 10:45] VITALS: BP 126/80
[2020-09-15] MEDS: IV NORMAL SALINE 1000ML BAG 1,000 ML IV SCH (10:45)
[2020-09-15] MEDS ORDERED: HYDR-2759 PO (12:14)
--- NOTE | 2020-09-15 12:58 | NUR ---
Patient left the facility around 1246 with his . Discharge education completed by this nurse and Dr Farris prior to dismissal. Scripts given for norco and colace. Dressing was not changed prior to discharge per Dr Watson instructions. Dressing is to be removed tomorrow by patient and left [employer], patient and his are aware. No concerns noted at discharge.
--- NOTE | 2020-09-15 16:17 | PDOC3 ---
Discharge Summary Visit Information Date of Admission: Sep 14, 2020 Date of Discharge: Sep 15, 2020 Admitting Diagnosis: Incisional hernia Brief Hospital Course Allergies Allergies Coded Allergies Type Severity Reaction Last Updated Verified No Known Drug Allergies 09/14/20 No Vital Signs Vital Signs Date Time Temp Pulse Resp B/P (MAP) Pulse Ox O2 Delivery O2 Flow Rate FiO2 09/15/20 10:45 98.6 66 16 126/80 (95) 96 Room Air 98.6 09/14/20 15:00 2.0 Brief Hospital Course Mr. Murray is a 54 old M who presented with incisional hernia and underwent repair. POD 1 pt doing well and stable for d/c home. Discharge Information Condition at Discharge: Improved Follow Up: Weeks (2) Disposition/Orders: D/C to Home Scheduled Docusate Sodium (Colace) 100 Mg Capsule, 100 MG PO DAILY for prevent hard stools for 30 Days, #30 Prescribed by: MARIA T GUY MD on 04/30/19 1230 Last Action: Continued on 09/14/20 1046 by Royce Farris Pantoprazole Sodium (Pantoprazole Sodium ) 40 Mg Tablet.dr, 40 MG PO DAILYAC for stomach acid for 30 Days, #30 Prescribed by: MARIA T GUY MD on 04/30/19 1230 Last Taken: Unknown Dose on 09/13/201999 Last Action: Continued on 09/14/20 1046 by Royce Farris Tamsulosin Hcl (Tamsulosin Hcl) 0.4 Mg Cap.er.24h, 0.8 MG PO DAILY for Enlarged prostate, (Reported) Entered as Reported by: KAILEE BEDOYA on 01/19/15 1402 Last Taken: Unknown Dose on 09/13/201999 Last Action: Continued on 09/14/20 1046 by Royce Farris Scheduled PRN Hydrocodone/Acetaminophen (Hydrocodone-Acetamin 5-325 mg) 1 Each Tablet, 1 EACH PO PRN Q6HRS PRN for PAIN, #30 (Reported) Entered as Reported by: ELIZA OWENS on 09/15/20 1214 Justicifation of Admission Dx: Justifications for Admission: Justification of Admission Dx: N/A ROYCE FARRIS MD Sep 15, 2020 16:17
--- NOTE | 2020-09-16 17:10 | PATHOLOGY ---
[facility] Accession Number: [id number] . 01 Material submitted: . gastrointestinal site - HERNIA SAC . 01 Clinical history: . VENTRAL HERNIA REPAIR . 02 Diagnosis: Segment of focal mesothelial-lined fibromembranous and fibroadipose tissue, ventral hernia repair: - Hernia sac showing focal reactive fibrosis and mild chronic inflammation. (JPM:children's librarian; 09/16/2020) MBR 09/16/2020 1626 Local . 02 Electronically signed: . Kaushik Pond MD, Pathologist NPI- [id number] . 01 Gross description: . The specimen is received in formalin, labeled "Yo Murray, hernia sac". Received is a segment of fibroadipose tissue with a slight amount of attached fibromembranous tissue measuring 3.6 x 3.2 x 1.1 cm in greatest dimensions. No distinct nodules or lesions are noted grossly. The specimen is submitted representatively in cassette A1. (CAA; 09/15/2020) QAC/QA 09/15/2020 1739 Local . 02 Pathologist provided ICD-10: K44.9 . 02 CPT . 570131 Specimen Comment: A courtesy copy of this report has been sent to [phone] Specimen Comment: Report sent to Performed at: [facility] [address], [place] [id number] MD Bakari Johnson MD Phone: [phone] Performed at: 02 [facility] [address] [place], [place] [id number] MD Kaushik Pond MD Phone: [phone]
== END 2020-09-15 12:50 | disposition home or self-care (01) ==
LOC: SURG 08:01 → 4 SOUTHEST 10:42
PROVIDERS: ADMIT Surgery; ATTEND Surgery
DX: K43.2 Incisional hernia without obstruction or gangrene (principal); K66.0 Peritoneal adhesions (postprocedural) (postinfection)
CPT/HCPCS: 49560; 74018; 96360; 96361; 96372; C1769; G0378; G0379; J0330; J0690; J1100; J1650; J2250; J2270; J2405; J2704; J2710; J3010; J3490; J7120; 88302